=== PATIENT | male | born 1935 | race Caucasian/White ===

== ENCOUNTER → 2016-11-17 | Outpatient (CLI) | payer OTHER, MEDICARE | LOC: FIMAGING 07:08 | PROVIDERS: ATTEND Internal Medicine Cardiovascular Disease | DX: I71.4 Abdominal aortic aneurysm, without rupture (principal); I10 Essential (primary) hypertension; Z72.0 Tobacco use ==

== ENCOUNTER → 2017-05-31 | Outpatient (CLI) | payer OTHER, MEDICARE | LOC: FIMAGING 12:40 | PROVIDERS: ATTEND Internal Medicine | DX: D47.2 Monoclonal gammopathy (principal); S22.050A Wedge compression fracture of T5-T6 vertebra, initial encounter for closed fracture ==

== ENCOUNTER → 2017-06-29 | Outpatient (CLI) | payer OTHER, MEDICARE | LOC: BMCIMAGING 08:33 | PROVIDERS: ATTEND Internal Medicine Cardiovascular Disease | DX: I70.0 Atherosclerosis of aorta (principal) ==

== ENCOUNTER 2017-07-21 07:29 | Emergency (ER) | payer OTHER, MEDICARE ==
[2017-07-21] MEDS ORDERED: OXYMETAZOLINE 30 ML NASAL SPRAY ONE (07:46)
[2017-07-21] MEDS ORDERED: OXYMETAZOLINE 30 ML NASAL SPRAY EACHNARE ONE (07:51)
[2017-07-21] MEDS ORDERED: COCAINE HCL 4% 4 ML BTL TP ONE ×2 (07:55→07:57)
[2017-07-21] MEDS ORDERED: SILVER NITRATE APPLICATOR 1 APPL TP ONE ×2 (07:56→07:57)
--- NOTE | 2017-07-21 07:56 | EDPHY ---
H & P Stated Complaint: nose bleed since 2am. On blood thinners Time Seen by Provider: 07/21/17 07:49 HPI/ROS: CHIEF COMPLAINT: Epistaxis HISTORY OF PRESENT ILLNESS: The patient is an 81-year-old man on Pradaxa for history of AFib and cardiac stents who comes to the emergency department complaining of epistaxis from his right nares that began while he was asleep last night. He did not try any interventions at home. He does not feel lightheaded or dizzy. No trauma. No fever. No recent infection. No vomiting. REVIEW OF SYSTEMS: Constitutional: denies: chills, fever, recent illness, recent injury EENTM: See HPI Respiratory: denies: cough, shortness of breath Cardiac: denies: chest pain, irregular heart rate, lightheadedness, palpitations Gastrointestinal/Abdominal: denies: abdominal pain, diarrhea, nausea, vomiting, blood streaked stools Genitourinary: denies: dysuria, frequency, hematuria, pain Musculoskeletal: denies: joint pain, muscle pain Skin: denies: lesions, rash, jaundice, bruising Neurological: denies: headache, numbness, paresthesia, tingling, dizziness, weakness Hematologic/Lymphatic: denies: blood clots, easy bleeding, easy bruising Immunologic/allergic: denies: HIV/AIDS, transplant EXAM: GENERAL: Well-appearing, well-nourished and in no acute distress. HEAD: Atraumatic, normocephalic. EYES: Pupils equal round and reactive to light, extraocular movements intact, sclera anicteric, conjunctiva are normal. ENT: Anterior epistaxis right nares, TMs normal, oropharynx clear without exudates. Moist mucous membranes. NECK: Normal range of motion, supple without lymphadenopathy or JVD. LUNGS: Breath sounds clear to auscultation bilaterally and equal. No wheezes rales or rhonchi. HEART: Regular rate and rhythm without murmurs, rubs or gallops. ABDOMEN: Soft, nontender, normoactive bowel sounds. No guarding, no rebound. No masses appreciated. BACK: No CVA tenderness, no spinal tenderness, step-offs or deformities EXTREMITIES: Normal range of motion, no pitting or edema. No clubbing or cyanosis. NEUROLOGICAL: Cranial nerves II through XII grossly intact. Normal speech, normal gait. 5/5 strength, normal movement in all extremities, normal sensation PSYCH: Normal mood, normal affect. SKIN: Warm, dry, normal turgor, no visible rashes or lesions. Source: Patient Exam Limitations: No limitations - Personal History Current Tetanus Diphtheria and Acellular Pertussis (TDAP): Yes Tetanus Vaccine Date: 2002 - Medical/Surgical History Hx Asthma: No Hx Chronic Respiratory Disease: No Hx Diabetes: No Hx Cardiac Disease: Yes Hx Renal Disease: No Hx Cirrhosis: No Hx Alcoholism: No Hx HIV/AIDS: No Hx Splenectomy or Spleen Trauma: No Other PMH: AFib, Stents x 5. - Social History Smoking Status: Heavy smoker Alcohol Use: Sober Drug Use: None Constitutional: Initial Vital Signs Heart Rate 91 07/21/17 07:30 Respiratory Rate 18 07/21/17 07:30 Blood Pressure 114/92 H 07/21/17 07:30 O2 Sat (%) 95 07/21/17 07:30 O2 Delivery Mode Room Air Allergies/Adverse Reactions: clopidogrel bisulfate [From Plavix] Allergy (Severe, Verified 07/21/17 12:56) MUSCLE WEAKNESS atorvastatin [Atorvastatin] Allergy (Verified 07/21/17 12:56) MUSCLE PAIN Home Medications: Medication Instructions Recorded Aspirin [Aspirin 325 mg] 325 mg PO DAILY 08/10/11 Metoprolol Tartrate [Lopressor] 100 mg PO BID 08/10/11 Rosuvastatin Calcium [Crestor] 5 mg PO DAILY 08/10/11 Finasteride 07/21/17 Losartan/Hctz 50/12.5 07/21/17 Pradaxa 150 MG (*) 07/21/17 Tamsulosin HCl 07/21/17 Medical Decision Making Procedures: The patient's nose was instilled with Afrin both sides and nasal clamp placed. It was then cleared with blowing and a cotton ball soaked in cocaine placed in the right anterior nares. Bleeding controlled. ED Course/Re-evaluation: 9:15 a.m. the patient is feeling much better. The bleeding has stopped with a cotton ball packing. Will leave this in place for 24 hr. He is ambulating without difficulty. He is eager to leave. We discussed return precautions. Differential Diagnosis: Partial list of the Differential diagnosis considered include but were not limited to; anterior nose bleed, steroid nosebleed, infection, trauma and although unlikely based on the history and physical exam, I also considered hemorrhage. I discussed these differential diagnoses and the plan with the patient as well as the usual and expected course. The patient understands that the diagnosis is provisional and that in medicine we are not always correct and that further workup is often warranted. Usual and customary warnings were given. All of the patient's questions were answered. The patient was instructed to return to the emergency department should the symptoms at all worsen or return, otherwise to followup with the physician as we discussed. - Data Points Medications Given: Discontinued Medications Cocaine HCl (Cocaine Hcl) 1 per TP EDNOW ONE Stop: 07/21/17 07:58 Last Admin: 07/21/17 07:58 Dose: 4 ml Oxymetazoline HCl (Afrin Nasal [place]) 2 sprays EACHNARE EDNOW ONE Stop: 07/21/17 07:52 Last Admin: 07/21/17 07:58 Dose: 2 spray Silver Nitrate/Potassium Nitrate (Silver Nitrate Applicator) 1 each TP EDNOW ONE Stop: 07/21/17 07:58 Last Admin: 07/21/17 07:59 Dose: 1 each Departure - Departure Disposition: Home, Routine, Self-Care Clinical Impression: Anterior epistaxis Condition: Fair Instructions: Nosebleed (ED) Referrals: Vinny Barajas MD [Primary Care Provider] - As per Instructions
[2017-07-21 09:20] VITALS: BP 110/49; PULSE 68; RESP 16; O2SAT 99
== END 2017-07-21 09:20 | disposition home or self-care (01) ==
DX: R04.0 Epistaxis (principal); F17.200 Nicotine dependence, unspecified, uncomplicated; Z79.82 Long term (current) use of aspirin; Z95.5 Presence of coronary angioplasty implant and graft

== ENCOUNTER 2017-07-21 12:53 | Emergency (ER) | payer OTHER, MEDICARE ==
[2017-07-21 12:59] VITALS: RESP 18; O2SAT 99
[2017-07-21] MEDS ORDERED: COCAINE HCL 4% 4 ML BTL TP ONE (13:16)
[2017-07-21] MEDS ORDERED: SILVER NITRATE APPLICATOR 1 APPL TP ONE (13:16)
[2017-07-21] MEDS ORDERED: OXYMETAZOLINE 30 ML NASAL SPRAY ONE (13:17)
--- NOTE | 2017-07-21 13:19 | EDPHY ---
H & P Stated Complaint: Here this morning w/nosebleed;returns because it still hasn't stopped Time Seen by Provider: 07/21/17 13:13 HPI/ROS: CHIEF COMPLAINT: Epistaxis HISTORY OF PRESENT ILLNESS: Patient is an 81-year-old man with history of AFib on Pradaxa who I saw her earlier this morning with epistaxis. His bleeding stopped with Afrin and a cotton ball soaked in cocaine. He states that it is starting to ooze again around the cotton ball. He does not think that any is running down his throat. He has not had a fever. He has not felt lightheaded or dizzy. REVIEW OF SYSTEMS: Constitutional: denies: chills, fever, recent illness, recent injury EENTM: See HPI Respiratory: denies: cough, shortness of breath Cardiac: denies: chest pain, irregular heart rate, lightheadedness, palpitations Gastrointestinal/Abdominal: denies: abdominal pain, diarrhea, nausea, vomiting, blood streaked stools Genitourinary: denies: dysuria, frequency, hematuria, pain Musculoskeletal: denies: joint pain, muscle pain Skin: denies: lesions, rash, jaundice, bruising Neurological: denies: headache, numbness, paresthesia, tingling, dizziness, weakness Hematologic/Lymphatic: denies: blood clots, easy bleeding, easy bruising Immunologic/allergic: denies: HIV/AIDS, transplant EXAM: GENERAL: Well-appearing, well-nourished and in no acute distress. HEAD: Atraumatic, normocephalic. EYES: Pupils equal round and reactive to light, extraocular movements intact, sclera anicteric, conjunctiva are normal. ENT: Right nares with clot behind cotton ball. It easily removed. Anterior bruising. NECK: Normal range of motion, supple without lymphadenopathy or JVD. LUNGS: Breath sounds clear to auscultation bilaterally and equal. No wheezes rales or rhonchi. HEART: Regular rate and rhythm without murmurs, rubs or gallops. ABDOMEN: Soft, nontender, normoactive bowel sounds. No guarding, no rebound. No masses appreciated. BACK: No CVA tenderness, no spinal tenderness, step-offs or deformities EXTREMITIES: Normal range of motion, no pitting or edema. No clubbing or cyanosis. NEUROLOGICAL: Cranial nerves II through XII grossly intact. Normal speech, normal gait. 5/5 strength, normal movement in all extremities, normal sensation PSYCH: Normal mood, normal affect. SKIN: Warm, dry, normal turgor, no visible rashes or lesions. Source: Patient Exam Limitations: No limitations - Personal History Current Tetanus Diphtheria and Acellular Pertussis (TDAP): Yes Tetanus Vaccine Date: 2002 - Medical/Surgical History Hx Asthma: No Hx Chronic Respiratory Disease: No Hx Diabetes: No Hx Cardiac Disease: Yes Hx Renal Disease: No Hx Cirrhosis: No Hx Alcoholism: No Hx HIV/AIDS: No Hx Splenectomy or Spleen Trauma: No Other PMH: AFib, Stents x 5. - Family History Significant Family History: No pertinent family hx - Social History Smoking Status: Current every day smoker Alcohol Use: Sober Drug Use: None Constitutional: Initial Vital Signs Heart Rate 66 07/21/17 12:57 Respiratory Rate 18 07/21/17 12:57 Blood Pressure 137/68 H 07/21/17 12:57 O2 Sat (%) 99 07/21/17 12:57 O2 Delivery Mode Room Air Allergies/Adverse Reactions: clopidogrel bisulfate [From Plavix] Allergy (Severe, Verified 07/21/17 12:56) MUSCLE WEAKNESS atorvastatin [Atorvastatin] Allergy (Verified 07/21/17 12:56) MUSCLE PAIN Home Medications: Medication Instructions Recorded Aspirin [Aspirin 325 mg] 325 mg PO DAILY 08/10/11 Metoprolol Tartrate [Lopressor] 100 mg PO BID 08/10/11 Rosuvastatin Calcium [Crestor] 5 mg PO DAILY 08/10/11 Finasteride 07/21/17 Losartan/Hctz 50/12.5 07/21/17 Pradaxa 150 MG (*) 07/21/17 Tamsulosin HCl 07/21/17 Medical Decision Making Procedures: The patient was again instilled with Afrin bilateral clamp placed for 20 min. The bleeding practically stopped. Cocaine was then given for anesthesia and a rhino rocket placed. The patient tolerated this well. The bleeding is completely controlled. ED Course/Re-evaluation: Patient tolerated the procedure well. I did recommend he leave in place for 48 hr and started antibiotics. He is extremely hesitant to start antibiotics. We agreed to leave the packing in place only for 24 hr and at that duration he will not need to start antibiotics. He will take it out himself we discussed steps to take if starts bleeding including using Afrin and a clamp again and returning to the ER. Differential Diagnosis: Partial list of the Differential diagnosis considered include but were not limited to; medication reaction, trauma, infection, anterior epistaxis, posterior epistaxis and although unlikely based on the history and physical exam , I also considered hemoptysis, hemorrhage. I discussed these differential diagnoses and the plan with the patient as well as the usual and expected course. The patient understands that the diagnosis is provisional and that in medicine we are not always correct and that further workup is often warranted. Usual and customary warnings were given. All of the patient's questions were answered. The patient was instructed to return to the emergency department should the symptoms at all worsen or return, otherwise to followup with the physician as we discussed. Departure - Departure Disposition: Home, Routine, Self-Care Clinical Impression: Anterior epistaxis Condition: Fair Instructions: Nosebleed (ED) Referrals: Vinny Barajas MD [Primary Care Provider] - As per Instructions
[2017-07-21 14:25] VITALS: BP 141/64; PULSE 67; TEMP 97.3
== END 2017-07-21 14:33 | disposition home or self-care (01) ==
PROC: 2Y41X5Z Packing of Nasal Region using Packing Material (ICD-10-PCS; principal; 2017-07-21)
DX: R04.0 Epistaxis (principal); F17.200 Nicotine dependence, unspecified, uncomplicated; Z79.82 Long term (current) use of aspirin

== ENCOUNTER 2018-01-03 01:46 | Observation (INO) | payer OTHER, MEDICARE ==
[2018-01-03] MEDS ORDERED: IPRATROPIUM/ALBUTEROL 3 ML DEYVIAL IH ONE (02:25)
[2018-01-03] MEDS ORDERED: FUROSEMIDE 40 MG/4 ML VIAL IVP ONE (03:35)
[2018-01-03] MEDS ORDERED: TAMSULOSIN HCL 0.4 MG CAP PO SCH (06:58)
[2018-01-03] MEDS ORDERED: ACETAMINOPHEN 325 MG TAB PO PRN (09:00)
[2018-01-03] MEDS ORDERED: ONDANSETRON 4 MG/2 ML VIAL IVP PRN (09:00)
[2018-01-03] MEDS ORDERED: FUROSEMIDE 20 MG TAB ONE ×2 (12:42→15:41)
[2018-01-03] MEDS ORDERED: ROSUVASTATIN CALCIUM 20 MG TAB PO SCH (21:00)
[2018-01-03] MEDS ORDERED: LOSARTAN POTASSIUM 25 MG TAB PO SCH (21:00)
[2018-01-03] MEDS ORDERED: METOPROLOL SUCCINATE XR 100 MG TAB PO SCH (21:00)
[2018-01-03] MEDS ORDERED: ROSUVASTATIN CALCIUM 20 MG TAB ONE (21:51)
[2018-01-03] MEDS ORDERED: METOPROLOL SUCCINATE XR 100 MG TAB PO ONE (21:52)
[2018-01-03] MEDS ORDERED: LOSARTAN POTASSIUM 25 MG TAB ONE (21:52)
--- NOTE | 2018-01-03 22:30 | ASMTCMCOM ---
CM Note CM Note Notes: 01/03/2018 Case Management Note Discussed pt during rounds this morning. Pt admitted for SOB with CHF exacerbation. Pt recently completed a lengthy road trip to [place] with his Sujey [phone]. Pt lives independently with his in his own home. He has 6 sons and 2 daughters in the [facility] area. His primary MD is Dr. Barajas. Case Management d/c poc: anticipating independent with follow up as directed. Case Management available if needs change. Date Signed: 01/03/2018 03:12 PM Electronically Signed By:Ester Teresa RN
--- NOTE | 2018-01-03 22:31 | GPROG ---
[f rep st] PROGRESS NOTE DATE OF SERVICE: 01/03/2018 SUBJECTIVE: The patient feels better today. He states he diuresed effectively overnight after recei ving IV Lasix. He denies orthopnea. He is still slightly short of breath, but this is improved. He has no chest pain. He is afebrile. He is eating well. OBJECTIVE: VITAL SIGNS: Stable. GENERAL: Patient is awake, alert, oriented in no acute distress. HEENT: Head is atraumatic, normocephalic. Pupils equal, round, and reactive to light. Extraocular motions intact. Oropharynx is clear. Mucous membranes are moist. NECK: Supple. He has 10-12 cm JVD. HEART: Regular rate and rhythm with 2/6 systolic ejection murmur. LUNGS: Reveal bibasilar cr ackles with fairly good air exchange. ABDOMEN: Soft, nondistended, nontender. Normoactive bowel so unds. EXTREMITIES: He has trace to 1+ bilateral lower extremity edema. Extremities, otherwise warm , well perfused. NEUROLOGIC: Grossly nonfocal. LABORATORY DATA: INR is 1.57. BNP 2200. ASSESSMENT/PLAN: The patient is an 82-year-old male patient who presented to the hospital with dyspn ea, admitted for acute heart failure management. 1. Acute heart failure. His symptoms are improved after intravenous Lasix. We will continue Lasix today orally and check an echocardiogram to evaluate his left ventricular function. 2. Coronary artery disease, status post stent x15. His EKG is nonischemic. There is no evidence of acute coronary syndrome. As above, an echo is pending. 3. Atrial fibrillation. The patient is rate controlled. We will continue anticoagulation with Prad axa. 4. Benign prostatic hypertrophy. Continue finasteride and Flomax. 5. Valvular heart disease. 6. Hypothyroidism. 7. Tobacco abuse. 8. Alcohol dependence. He drinks up to 5 vodkas a day. I offered to order him vodka while in the h ospital, though he declines. Will need to watch closely for signs of withdrawal, and prior to onset of withdrawal, initiate alcohol or CIWA protocol. DISPOSITION: Patient will require greater than 48 hours hospitalization for ongoing management of hi s acute heart failure. /[id number]/MODL
[2018-01-03 23:56] LABS: INR 1.57 (0.83-1.16); PROTIME(PATIENT) 18.9 SEC (12.0-15.0)
--- NOTE | 2018-01-04 05:17 | EDPHY ---
H & P Stated Complaint: recent air travel, today having cp/sob/intermittent dizziness Time Seen by Provider: 01/03/18 03:00 HPI/ROS: HPI CHIEF COMPLAINT: Chest pain, shortness of breath HISTORY OF PRESENT ILLNESS: Patient is a very pleasant 82-year-old male, presents emergency room with chest discomfort and shortness of breath. He does report to me that he has coronary artery disease with 5 stents. Additionally he takes Pradaxa as he history of AFib. He does have a long history of smoking tobacco and smokes half a pack per day. He recently went on a trip to [place] drove there and back. For the past 2 days he has gotten progressively worsening shortness of breath. Also some chest pressure. Decided come the emergency room as he was unable to sleep. He states he can't take a deep breath in. Past Medical History: Coronary artery disease with multiple stents, AFib, hypertension, hyperlipidemia Past Surgical History cardiac stents Social History: Denies drugs alcohol tobacco. Family History: Noncontributory ROS REVIEW OF SYSTEMS: A comprehensive 10 point review of systems is otherwise negative aside from elements mentioned in the history of present illness. Exam Constitutional triage nursing summary reviewed, vital signs reviewed, awake/ alert. Eyes normal conjunctivae and sclera, EOMI, PERRLA. HENT normal inspection, atraumatic, moist mucus membranes, no epistaxis, neck supple/ no meningismus, no raccoon eyes. Respiratory decreased breath sounds bilaterally, no respiratory distress, no wheezing. Cardiovascular rate normal, regular rhythm, no murmur, no edema, distal pulses normal. Gastrointestinal soft, non-tender, no rebound, no guarding, normal bowel sounds, no distension, no pulsatile mass. Genitourinary no CVA tenderness. Musculoskeletal no midline vertebral tenderness, full range of motion, no calf swelling, no tenderness of extremities, no meningismus, good pulses, neurovascularly intact. Skin pink, warm, & dry, no rash, skin atraumatic. Neurologic awake, alert and oriented x 3, AAOx3, moves all 4 extremities equally, motor intact, sensory intact, CN II-XII intact, normal cerebellar, normal vision, normal speech. Psychiatric normal mood/affect. Heme/Lymph/Immune no lymphadenopathy. Differential diagnosis includes but is not limited to: ACS, atypical chest pain , pneumothorax, pneumonia, pulmonary embolism, aortic dissection, congestive heart failure, tumor, musculoskeletal pain, esophageal pain, GERD, peptic ulcer disease, pancreatitis Medical Decision Making: Plan for this patient IV establishment full personnel monitor obtain EKG to rule out acute coronary syndrome, chest x-ray, check D- dimer, check a BNP, and re-evaluate. Re-evaluation: EKG interpretation by me on record in [employer] system. Impression time of EKG 2:03 a.m., this is AFib rate of 77 PVC present. No acute ischemic change. Chest x-ray reviewed by myself. Two view. Cardiomegaly with pulmonary edema. 0330: I have ordered this patient 40 mg IV Lasix. Is also noted his BNP is elevated at 2290 Patient's troponin noted to be negative. 0.02. Additionally patient's D-dimer- 0.27. Patient has elevated BNP, shortness of breath, decreased breath sounds bilaterally, cardiomegaly on the chest x-ray with some pulmonary edema I have ordered this patient IV Lasix 40 mg. EKG shows AFib with no acute ischemia. Given this patient's cardiac risk factors including obesity, hyperlipidemia, hypertension, coronary disease with stents patient need to be admitted the hospital. Final diagnosis shortness of breath, congestive heart failure. Spoke with the hospitalist service 400AM; Dr. Guevara agrees to admit. Source: Patient - Personal History Tetanus Vaccine Date: 2002 - Medical/Surgical History Hx Asthma: No Hx Chronic Respiratory Disease: No Hx Diabetes: No Hx Cardiac Disease: Yes Hx Renal Disease: No Hx Cirrhosis: No Hx Alcoholism: No Hx HIV/AIDS: No Hx Splenectomy or Spleen Trauma: No Other PMH: AFib, Stents x 5, pericarditis, mi, bph, hyperlipidemia, hypertension , hypothyroid - Social History Smoking Status: Current every day smoker Constitutional: Initial Vital Signs Temperature (C) 36.8 C 01/03/18 01:52 Heart Rate 77 01/03/18 01:52 Respiratory Rate 18 01/03/18 01:52 Blood Pressure 114/64 01/03/18 01:52 O2 Sat (%) 93 01/03/18 01:52 O2 Delivery Mode Room Air Allergies/Adverse Reactions: clopidogrel bisulfate [From Plavix] Allergy (Severe, Verified 07/21/17 12:56) MUSCLE WEAKNESS atorvastatin [Atorvastatin] Allergy (Verified 07/21/17 12:56) MUSCLE PAIN Home Medications: Medication Instructions Recorded Aspirin [Aspirin 325 mg] 325 mg PO DAILY 08/10/11 Metoprolol Tartrate [Lopressor] 100 mg PO BID 08/10/11 Rosuvastatin Calcium [Crestor] 5 mg PO DAILY 08/10/11 Finasteride 07/21/17 Losartan/Hctz 50/12.5 07/21/17 Pradaxa 150 MG (*) 07/21/17 Tamsulosin HCl 07/21/17 Medical Decision Making - Data Points Laboratory Results: Laboratory Results 01/03/18 02:08 01/03/18 01/03/18 02:11 02:08 PT 18.9 SEC H SEC (12.0-15.0) INR 1.57 H (0.83-1.16) APTT 47.6 SEC H SEC (23.0-38.0) D-Dimer < 0.27 ug/mLFEU ug/mLFEU (0.00-0.50) Sodium 134 mEq/L L mEq/L (135-145) Potassium 4.4 mEq/L mEq/L (3.3-5.0) Chloride 101 mEq/L mEq/L (97-110) Carbon Dioxide 22 mEq/l mEq/l (22-31) Anion Gap 11 mEq/L mEq/L (8-16) BUN 12 mg/dL mg/dL (7-23) Creatinine 0.9 mg/dL mg/dL (0.7-1.3) Estimated GFR > 60 Glucose 110 mg/dL H mg/dL (70-100) Calcium 8.7 mg/dL mg/dL (8.5-10.4) NT-Pro-B Natriuret Pep 2290 pg/mL H pg/mL (0-450) Departure - Departure Disposition: [facility] Inpatient Acute Clinical Impression: Chest pain Qualifiers: Chest pain type: unspecified Qualified Code(s): R07.9 - Chest pain, unspecified Condition: Fair
[2018-01-04] MEDS: LEVOTHYROXINE 50 MCG TAB PO SCH ×2 (06:49→08:25)
[2018-01-04] MEDS: ASPIRIN EC 81 MG TAB PO SCH ×2 (08:25→09:37)
[2018-01-04] MEDS: METOPROLOL SUCCINATE XR 50 MG TAB PO SCH ×2 (08:26→09:38)
[2018-01-04] MEDS: NICOTINE 14 MG/24 HR PATCH TD SCH ×2 (08:26→09:37)
[2018-01-04] MEDS: FUROSEMIDE 20 MG TAB PO SCH ×2 (08:26→09:38)
[2018-01-04] MEDS: DABIGATRAN ETEXILATE MESYL 150 MG CAP PO SCH ×2 (08:26→08:39)
[2018-01-04] MEDS: FINASTERIDE 5 MG TAB PO SCH ×2 (08:26→09:37)
[2018-01-04] MEDS: TAMSULOSIN HCL 0.4 MG CAP PO SCH ×2 (08:26→09:38)
--- NOTE | 2018-01-04 09:33 | CPEKG ---
Heart Rate: 77 RR Interval: 779 QRSD Interval: 82 QT Interval: 400 QTC Interval: 453 QRS [place]: -24 T Wave [place]: 29 EKG Severity - ABNORMAL ECG - EKG Impression: ATRIAL FIBRILLATION EKG Impression: VENTRICULAR PREMATURE COMPLEX EKG Impression: PROBABLE INFERIOR INFARCT, AGE INDETERMINATE EKG Impression: CONSIDER ANTEROSEPTAL INFARCT EKG Impression: ATRIAL FIBRILLATION HAS REPLACED NORMAL SINUS RHYTHM NOTED ON PRIOR ECG (FROM EKG Impression: 15-FEB-2011) Electronically Signed By: Rapheal Mondragon 04-Jan-2018 11:30:00
[2018-01-04 11:16] VITALS: BP 94/48
--- NOTE | 2018-01-04 14:57 | EDPHY ---
[facility] Patient Name: KI ESPAÑA Rpt#: [id number] Unit Number: [id number] ER Physician: Rober Aragon MD Patient Type: ADM Lisbeth Adm Date/Source: 01/03/18 EMR Discharge Date: Primary Carrier: MEDICARE OUTPATIENT EMERGENCY DEPARTMENT PROVIDER REPORT H P Stated Complaint: chest pain Time Seen by Provider: 01/03/18 01:50 HPI/ROS: HPI CHIEF COMPLAINT: Chest pain, shortness of breath HISTORY OF PRESENT ILLNESS: Patient is a very pleasant 82-year-old male, presents emergency room with chest discomfort and shortness of breath. He does report to me that he has coronary artery disease with 5 stents. Additionally he takes Pradaxa as he history of AFib. He does have a long history of smoking tobacco and smokes half a pack per day. He recently went on a trip to [place] drove there and back. For the past 2 days he has gotten progressively worsening shortness of breath. Also some chest pressure. Decided come the emergency room as he was unable to sleep. He states he can't take a deep breath in. Past Medical History: Coronary artery disease with multiple stents, AFib, hypertension, hyperlipidemia Past Surgical History cardiac stents Social History: Denies drugs alcohol tobacco. Family History: Noncontributory ROS REVIEW OF SYSTEMS: A comprehensive 10 point review of systems is otherwise negative aside from elements mentioned in the history of present illness. Exam Constitutional triage nursing summary reviewed, vital signs reviewed, awake/alert. Eyes normal conjunctivae and sclera, EOMI, PERRLA. HENT normal inspection, atraumatic, moist mucus membranes, no epistaxis, neck supple/ no meningismus, no raccoon eyes. Respiratory decreased breath sounds bilaterally, no respiratory distress, no wheezing. Cardiovascular rate normal, regular rhythm, no murmur, no edema, distal pulses normal. Gastrointestinal soft, non-tender, no rebound, no guarding, normal bowel sounds, no distension, no pulsatile mass. Genitourinary no CVA tenderness. Musculoskeletal no midline vertebral tenderness, full range of motion, no calf swelling, no tenderness of extremities, no meningismus, good pulses, neurovascularly intact. Skin pink, warm, dry, no rash, skin atraumatic. Neurologic awake, alert and oriented x 3, AAOx3, moves all 4 extremities equally, motor intact, sensory intact, CN II-XII intact, normal cerebellar, normal vision, normal speech. Psychiatric normal mood/affect. Heme/Lymph/Immune no lymphadenopathy. Differential diagnosis includes but is not limited to: ACS, atypical chest pain, pneumothorax, pneumonia, pulmonary embolism, aortic dissection, congestive heart failure, tumor, musculoskeletal pain, esophageal pain, GERD, peptic ulcer disease, pancreatitis Medical Decision Making: Plan for this patient IV establishment full director of cardiac cath lab obtain EKG to rule out acute coronary syndrome, chest x-ray, check D-dimer, check a BNP, and re-evaluate. Re-evaluation: EKG interpretation by me on record in [employer] system. Impression time of EKG 2:03 a.m., this is AFib rate of 77 PVC present. No acute ischemic change. Chest x-ray reviewed by myself. Two view. Cardiomegaly with pulmonary edema. 0330: I have ordered this patient 40 mg IV Lasix. Is also noted his BNP is elevated at 2290 Patient's troponin noted to be negative. 0.02. Additionally patient's D-dimer-0.27. Patient has elevated BNP, shortness of breath, decreased breath sounds bilaterally, cardiomegaly on the chest x-ray with some pulmonary edema I have ordered this patient IV Lasix 40 mg. EKG shows AFib with no acute ischemia. Given this patient's cardiac risk factors including obesity, hyperlipidemia, hypertension, coronary disease with stents patient need to be admitted the hospital. Final diagnosis shortness of breath, congestive heart failure. Spoke with the hospitalist service 400AM; Dr. Guevara agrees to admit. Source: Patient - Personal History Current Tetanus/Diphtheria Vaccine: Yes Current Tetanus Diphtheria and Acellular Pertussis (TDAP): Yes Tetanus Vaccine Date: 2002 - Medical/Surgical History Hx Asthma: No Hx Chronic Respiratory Disease: No Hx Diabetes: No Hx Cardiac Disease: Yes Hx Renal Disease: No Hx Cirrhosis: No Hx Alcoholism: No Hx HIV/AIDS: No Hx Splenectomy or Spleen Trauma: No Other PMH: AFib, Stents x 5. - Social History Smoking Status: Current every day smoker Constitutional: Initial Vital Signs Temperature (C) 36.8 C 01/03/18 01:50 Heart Rate 77 01/03/18 01:50 Respiratory Rate 18 01/03/18 01:50 Blood Pressure 114/64 01/03/18 01:50 O2 Sat (%) 93 01/03/18 01:50 O2 Delivery Mode Room Air Allergies/Adverse Reactions: clopidogrel bisulfate [From Plavix] Allergy (Severe, Verified 07/21/17 12:56) MUSCLE WEAKNESS atorvastatin [Atorvastatin] Allergy (Verified 07/21/17 12:56) MUSCLE PAIN Home Medications: Medication Instructions Recorded Aspirin [Aspirin 325 mg] 325 mg PO DAILY 08/10/11 Metoprolol Tartrate [Lopressor] 100 mg PO BID 08/10/11 Rosuvastatin Calcium [Crestor] 5 mg PO DAILY 08/10/11 Finasteride 07/21/17 Losartan/Hctz 50/12.5 07/21/17 Pradaxa 150 MG (*) 07/21/17 Tamsulosin HCl 07/21/17 Medical Decision Making - Data Points Laboratory Results: Laboratory Results 01/03/18 02:11 01/03/18 02:11 01/03/18 01/03/18 01/03/18 02:11 02:11 02:11 WBC 5.20 10 3/uL 10 3/uL (3.80-9.50) RBC 3.20 10 6/uL L 10 6/uL (4.40-6.38) Hgb 10.9 g/dL L g/dL (13.7-17.5) Hct 31.6 % L % (40.0-51.0) MCV 98.8 fL fL (81.5-99.8) MCH 34.1 pg pg (27.9-34.1) MCHC 34.5 g/dL g/dL (32.4-36.7) RDW 15.0 % % (11.5-15.2) Plt Count 127 10 3/uL L 10 3/uL (150-400) MPV 11.2 fL fL (8.7-11.7) Neut % (Auto) 53.8 % % (39.3-74.2) Lymph % (Auto) 29.0 % % (15.0-45.0) [place] % (Auto) 12.5 % % (4.5-13.0) Eos % (Auto) 3.5 % % (0.6-7.6) Baso % (Auto) 0.4 % % (0.3-1.7) Nucleat RBC Rel Count 0.0 % % (0.0-0.2) Absolute Neuts (auto) 2.80 10 3/uL 10 3/uL (1.70-6.50) Absolute Lymphs (auto) 1.51 10 3/uL 10 3/uL (1.00-3.00) Absolute Monos (auto) 0.65 10 3/uL 10 3/uL (0.30-0.80) Absolute Eos (auto) 0.18 10 3/uL 10 3/uL (0.03-0.40) Absolute Basos (auto) 0.02 10 3/uL 10 3/uL (0.02-0.10) Absolute Nucleated RBC 0.00 10 3/uL 10 3/uL (0-0.01) Immature Gran % 0.8 % % (0.0-1.1) Immature Gran # 0.04 10 3/uL 10 3/uL (0.00-0.10) PT 18.9 SEC H SEC (12.0-15.0) INR 1.57 H (0.83-1.16) APTT 47.6 SEC H SEC (23.0-38.0) D-Dimer < 0.27 ug/mLFEU ug/mLFEU (0.00-0.50) Sodium 134 mEq/L L mEq/L (135-145) Potassium 4.4 mEq/L mEq/L (3.3-5.0) Chloride 101 mEq/L mEq/L (97-110) Carbon Dioxide 22 mEq/l mEq/l (22-31) Anion Gap 11 mEq/L mEq/L (8-16) BUN 12 mg/dL mg/dL (7-23) Creatinine 0.9 mg/dL mg/dL (0.7-1.3) Estimated GFR > 60 Glucose 110 mg/dL H mg/dL (70-100) Calcium 8.7 mg/dL mg/dL (8.5-10.4) NT-Pro-B Natriuret Pep 2290 pg/mL H pg/mL (0-450) Departure - Departure Disposition: [facility] Inpatient Acute Clinical Impression: Acute dyspnea Chest pain Qualifiers: Chest pain type: unspecified Qualified Code(s): R07.9 - Chest pain, unspecified Condition: Fair *This report may have been compiled using a voice recognition system, and might contain typographical errors and blanks.* Rober Aragon MD 01/03/18 0753 <Electronically signed by Rober Aragon MD> 1 T: LEE ANN 01/03/18751 CC: Vinny Barajas MD
--- NOTE | 2018-01-04 21:14 | GHP ---
[f rep st] HISTORY AND PHYSICAL DATE OF ADMISSION: 01/03/2018 SOURCE: Patient able to provide some of the history. He and his are fair historians. Specific details regarding patient's cardiac history are a little limited. Currently, [employer] is down and I am unable to verify patient's past cardiac history. Case was discussed with ED provider. CHIEF COMPLAINT: Shortness of breath and chest pressure. HISTORY OF PRESENT ILLNESS: This is a very pleasant 82-year-old gentleman with a past medical histor y significant for coronary artery disease with history of stents, AFib, hypothyroidism, BPH, and valv ular heart disease who presents to the emergency department early this morning with complaints of alina rtness of breath and chest pressure. The patient does not wear home oxygen. He reports that he has had an intermittent nonproductive cough. No fevers, chills. He has chronic lower extremity edema wh ich appears to be close to chronic close to baseline, which is minimal currently. The patient also r eports slight orthopnea but no PND. He has had recent extended travel while driving to [employer] and [employer]. He denies any calf pain or swelling. No recent sick contacts. REVIEW OF SYSTEMS: GENERAL: Patient reports that he always feels cold but has not had any fevers or chills otherwise. SKIN: No rashes or sores. ENT: Patient with chronic nasal congestion but no sor e throat. EYES: No acute changes in vision or ocular pain. CV: Patient reports a central chest pre ssure associated with his shortness of breath. He also reports history of atrial fibrillation with i ntermittent palpitations, but nothing currently. RESPIRATORY: See HPI. GI: No nausea, vomiting, a bdominal pain or diarrhea. : No dysuria or hematuria. Patient does have a history of nocturia an d BPH. MUSCULOSKELETAL: Patient reports progressive upper extremity weakness that has been ongoing for the last 5 to 10 years. He has no focal weakness complaint. No joint pains from baseline. NEUR O: Patient denies headache recently. He has chronic neuropathy in both feet. PSYCH: Negative for anxiety, depression. Remainder of review of systems negative except as noted above. ALLERGIES: No known drug allergies. HOME MEDICATIONS: List reviewed with the patient's . Metoprolol succinate 100 mg half tab in th e evening; rosuvastatin 20 mg half tab in the evening; levothyroxine 50 mcg daily; finasteride 5 mg, patient now taking a half tab at night; aspirin 81 mg in the morning; losartan 12.5 mg daily in the e vening; Pradaxa 300 mg p.o. daily; tamsulosin 0.4 mg 2 tabs daily. PAST MEDICAL HISTORY: Significant for CAD with history of stenting. The patient reports he has had a total of 5 stents placed very the course of 2 caths. A history of atrial fibrillation on chronic a nticoagulation with Pradaxa, hypothyroidism, BPH, valvular heart disease. The patient is unsure if h gustavo has any underlying CHF, but he does report approximately 20 to 30 years ago patient had a pericardi al effusions. PAST SURGICAL HISTORY: Significant for cardiac cath x2 with 5 stents total, tonsillectomy, adenoidec rudy and left cataract extraction with lens placement. FAMILY HISTORY: Father , age 42, from [place]. CAD runs in the family. Both his brothers had by pass at younger age and a sister with history of diabetes type 2. SOCIAL HISTORY: Patient is , lives with his . Son is in town and supportive. He does co ntinue to smoke approximately quarter pack to half pack per day. Denies any illicit drug use or sapphire toby use. The patient does drink greater than 4 to 5 ounces, but he cannot exactly quantify his tot al alcohol intake as he does utilize in his nonalcoholic beverages adding it several times daily. De gopales any history of withdrawal. CODE STATUS: DNR/DNI with advanced directives in place. Confirmed with at bedside. PHYSICAL EXAM: VITALS SIGNS: Blood pressure initially 144/64, heart rate 77, respiratory rate 18, t emperature 36.8, pulse ox 93% on room air. Repeated blood pressure recently on exam is 110/63, heart rate 75, respiratory rate 16, pulse ox 96% on 2 L by nasal cannula. GENERAL: No acute distress. V justine pleasant, frail, elderly gentleman is lying quietly in bed. His is at bedside as well as hi s son. HEAD: Normocephalic, atraumatic. EYES: Extraocular muscles are intact. Pupils equal, roun d, with decreased reactivity to light bilaterally and symmetric. No scleral icterus or conjunctival injection. ENT: Mucous membranes appear moist. No oropharyngeal erythema. Dentures in place. No nasal discharge. NECK: Supple, trachea midline. CV: Quite distant heart sounds with fairly regular rhythm. Patient has a holosystolic murmur, greatest at the left sternal border. No chest wall tend erness to palpation. RESPIRATORY: Diminished at the bases. No wheezes or rhonchi appreciated. Unl abored breathing. ABDOMEN: Slightly distended. Patient complains of bladder discomfort with palpat ion over the lower abdomen, but no rebound, guarding, or masses are appreciated. Positive bowel soun ds. : No suprapubic tenderness to palpation. Patient does report some bladder discomfort due to feeling like he needs to void. No Leggett catheter in place. EXTREMITIES: Trace lower extremity zaria a. Patient with 1+ pedal pulses bilaterally and symmetric. NEURO: Grossly nonfocal, no facial droo ping. Generalized weakness. Moves all extremities, upper and lower, while lying in bed. PSYCH: Th ought process, content and questions are appropriate. Patient is awake, alert, and oriented x3. EKG reviewed myself showing atrial fibrillation in the 70s with occasional PVC. Patient with Q-waves in the inferior and anteroseptal leads. QTc is 453. LABORATORY STUDIES: WBC 6.56, H and H 17.2 and 50.5, MCV 83.9, platelet count 143. Patient with a n eutrophilia of 92.7%, 0.8% bands. PT 18.9, INR 1.57, PTT 47.6, D-dimer 0.27. Sodium is 134, potass ium 4.4, chloride 101, CO2 22, BUN 12, creatinine 0.9, glucose 110, calcium 8.7. Chest x-ray: Image reviewed myself. Report is still pending. Reviewed and discussed with ED provid er showing cardiomegaly with some pulmonary vascular congestion. No effusions appreciated. No conso lidations. ASSESSMENT AND PLAN: This is a very pleasant 82-year-old gentleman with a history of coronary artery disease, atrial fibrillation on anticoagulation and BPH who presents to the emergency department wit h progressive shortness of breath and some central chest pressure. 1. Dyspnea. Differential diagnosis including chronic obstructive pulmonary disease exacerbation sharona bhupinder congestive heart failure decompensation. Patient reports having a recent echocardiogram complete d on outpatient basis. This was done with [facility] and we will try to obtain patient's recent records, bu t may need to consider repeating echocardiogram during stay. Patient received nebulizer treatment as well as a dose of Lasix after which he has been diuresing appropriately. He reports his shortness o f breath has improved. We will continue with nebulizers, but hold off on steroid use and will hold o ff on additional dosing of Lasix as patient has had multiple voids and continues to urinate well. He does have a history of BPH and he is concerned regarding any obstruction. 2. Chest pressure, possibly related to chronic obstructive pulmonary disease and hypoxia versus jono nary artery disease and angina. The patient's troponin is negative. His D-dimer was also found to b e negative in setting of recent travel. The patient without any calf pain or increased swelling. We will hold off on additional evaluation given the specificity of the D-dimer. The patient's BTMP was elevated at 2200. 3. Chronic medical conditions: a. Atrial fibrillation, currently rate controlled. Continue with anticoagulation. b. Hypothyroidism. Resume patient's levothyroxine replacement. c. BPH. Continue patient's finasteride and tamsulosin. Family plans to bring in his home medicatio ns as he will initially be under observation status. d. History of valvular heart disease. Monitor the patient's condition closely with ongoing diuresis . 4. Fluid, electrolytes, nutrition: Saline lock IV. Electrolyte monitoring and replacement if neede d. Cardiac diet has been ordered. 5. Fluid restriction in addition to 1500 mL per day at this time. Salt restriction as well. 6. Code status is DNR/DNI. DISPOSITION: Patient admitted to observation status initially on PCU pending his clinical progressio n with diuresis and nebulizer treatments for his dyspnea. We will also plan to monitor troponin and trend given patient's complaint of chest pressure. Of note, he and his do note that this pain d oes feel quite different from his previous experiences during his MIs of left shoulder pain with dysp mukesh. /[id number]/MODL
[2018-01-05] MEDS ORDERED: FUROSEMIDE 20 MG TAB PO SCH (09:00)
--- NOTE | 2018-01-05 18:09 | PDMN ---
Medical Necessity Medical necessity: est los>2mn for management of heart failure with transition to oral Lasix; comorbid CAD, afib , valvular heart disease, and etoh dependence ; per order and progress note 01/03/18
--- NOTE | 2018-01-10 14:35 | ECHO ---
[email or web address] [address] Main: [phone] Fax: Transthoracic Echocardiogram Name: KI ESPAÑA MR#: [id number] Study Date: 01/03/2018 Study Time: 01:44 PM Date of : 1935 Age: 82 year(s) Height: 180.3 cm (71 in.) Weight: 79.38 kg (175 lb.) BSA: 1.99 m2 Gender: Male Examination: Echo Indication: heart failure Image Quality: Technically Difficult Contrast: Requested by: Lis Guevara BP: 97 mmHg/54 mmHg Heart Rate: Rhythm: Atrial fibrillation Indication: heart failure Procedure Staff [employer] Director: Izaiah Queen RDCS Reading Physician: Jordana Murillo MD Requesting Provider: Conclusions: Normal size left ventricle. Mild to moderate LVH. Normal global systolic LV function. EF is 69 %. No regional wall motion abnormality. Normal size right ventricle. Normal RV function. The left atrium is severely dilated. Mild mitral valve regurgitation is present. Mild calcific aortic valve stenosis. Mild tricuspid regurgitation is present. Right ventricular systolic pressure measures 35mmHg. Measurements: Chambers Valvular Assessment AV/MV Valvular Assessment TV/PV Normal Normal Normal Name Value Range Name Value Range Name Value Range IVSd (2D): 1.3 cm (0.6 cm-1.1 AV Vmax: 2.55 m/s (1 m/s-1.7 TR Vmax: 2.76 mm/s ( - ) cm) m/s) TR PGmax: 30 mmHg ( - ) LVDd (2D): 5.1 cm (4.2 cm-5.9 AV maxP mmHg ( - ) syst. PAP: 35 mmHg ( - ) cm) AV meanP mmHg ( - ) PV Vmax: 0.83 m/s (0.6 m/s-0.9 LVDs (2D): 3.1 cm (2.1 cm-4 LVOT Vmax: 0.82 m/s (0.7 m/s-1.1 m/s) cm) m/s) PV PGmax: 3 mmHg ( - ) LVPWd (2D): 1.5 cm (0.6 cm-1 ALCIRA (Vmax): 1.1 cm2 ( - ) cm) ALCIRA (VTI): 1.2 cm ( - ) LVOTd 2.1 cm 2.1 cm mm MV E Vmax: 0.93 m/s ( - ) LVEF (2D): 69 (>=54 %) Continued Measurements: Chambers Valvular Assessment AV/MV Valvular Assessment TV/PV Patient: KI ESPAÑA Study Date: 01/03/2018 Page 1 of 2 01:44 PM Name Value Name Value Name Value LADs Lon.4 cm MV E' Septal: 0.08 m/s CVP (est.): 5 mmHg LA Area: 28.3 cm2 MV E/E' Septal: 11.70 LA Volume: 100 ml MV E/E' Lateral: 10.10 LA Volume Index: 50.3 ml/m2 Findings: Left Ventricle: Normal size left ventricle. Mild to moderate LVH. Normal global systolic LV function. EF is 69 %. No regional wall motion abnormality. Unable to assess diastolic dysfunction. Right Ventricle: Normal size right ventricle. Normal RV function. Left Atrium: The left atrium is severely dilated. Right Atrium: Right atrial enlargement. Mitral Valve: The mitral valve is normal in appearance and function. Mild mitral annular calcification. Mild mitral valve regurgitation is present. No mitral stenosis is present. Aortic Valve: Aortic valve is not well visualized. CA+. There is no aortic valve regurgitation. Mild calcific aortic valve stenosis. Tricuspid Valve: The tricuspid valve is normal in appearance and function. Mild tricuspid regurgitation is present. Right ventricular systolic pressure measures 35mmHg. Pulmonic Valve: Pulmonary valve not well visualized. There is no pulmonic regurgitation seen. Pericardium: Trivial pericardial effusion. (No Signature Object) Patient: KI ESPAÑA Study Date: 01/03/2018 Page 2 of 2 01:44 PM [id number]
== END 2018-01-04 14:08 | disposition home or self-care (01) ==
LOC: F2W 05:22
PROVIDERS: ADMIT Family Medicine; ATTEND Hospitalist
DX: I50.9 Heart failure, unspecified (principal); I25.10 Atherosclerotic heart disease of native coronary artery without angina pectoris; I48.91 Unspecified atrial fibrillation; F10.20 Alcohol dependence, uncomplicated; F17.210 Nicotine dependence, cigarettes, uncomplicated; I11.0 Hypertensive heart disease with heart failure; E78.5 Hyperlipidemia, unspecified; E66.9 Obesity, unspecified; E03.9 Hypothyroidism, unspecified; N40.0 Benign prostatic hyperplasia without lower urinary tract symptoms; Z79.01 Long term (current) use of anticoagulants; Z79.82 Long term (current) use of aspirin; Z82.49 Family history of ischemic heart disease and other diseases of the circulatory system; Z95.5 Presence of coronary angioplasty implant and graft; Z66 Do not resuscitate
CPT/HCPCS: 93005; 97161; 99285; G8978; G8979; G8980; 84484-PO; J1940

== ENCOUNTER 2018-01-10 09:18 | Inpatient (IN) | payer OTHER, MEDICARE ==
[2018-01-10] MEDS ORDERED: NS 500 ML IV ONE (09:38)
--- NOTE | 2018-01-10 09:39 | CPEKG ---
Heart Rate: 76 RR Interval: 789 QRSD Interval: 82 QT Interval: 420 QTC Interval: 473 QRS [place]: -19 EKG Severity - ABNORMAL ECG - EKG Impression: ATRIAL FIBRILLATION, V-RATE 59-93 EKG Impression: PROBABLE INFERIOR INFARCT, AGE INDETERMINATE Electronically Signed By: Librado Cardozo 11-Jan-2018 16:35:21
--- NOTE | 2018-01-10 09:45 | EDPHY ---
HPI/HX/ROS/PE/MDM Narrative: CHIEF COMPLAINT:Dizziness, vomiting, hypotension HPI: This patient is an anticoagulated 82 year old male with past medical history significant for atrial fibrillation (Pradaxa), CAD s/p stent placement, valvular heart disease, and BPH. He presents today with dizziness, hypotension, and vomiting. He was admitted 01/03/18 for CHF exacerbation and treated with Lasix. He feels he has not had much water in the past few days, and has felt constipated. Four days ago, he began feeling dizzy and lightheaded. This has steadily worsened. This morning, he had room-spinning dizziness and felt disoriented, causing him to fall. Additionally, when he tried to reach his arm up, it became uncontrollable and was "going in circles". He had an episode of metallic-smelling dark brown emesis this morning as well. He states he has been taking iron supplements for anemia. He denies any known blood in his stool. No abdominal pain. The patient denies chest pain, shortness of breath, headache, or other associated symptoms. REVIEW OF SYSTEMS: Aside from elements discussed in the HPI, a comprehensive 10-point review of systems was reviewed and is negative. PMH: CAD s/p stent placement x5. Atrial fibrillation (Pradaxa). Valvular heart disease. BPH. Hypothyroidism. CHF. SOCIAL HISTORY: at bedside. Lives in [place]. Retired. PHYSICAL EXAM: General:Patient is alert, in no acute distress. ENT:Eyes are normal to inspection. ENT inspection normal. Neck: Normal inspection. Full range of motion. Respiratory:No respiratory distress. Breath sounds normal bilaterally. Cardiovascular: Regular rate and rhythm. Strong peripheral pulses. Normal cap refill. Abdomen:The abdomen is nontender to palpation. There are no peritoneal signs. There are normal bowel sounds. Back: Normal to inspection. No tenderness to palpation. Skin: Normal color. No rash. Warm and dry. Extremities: Normal appearance. Full range of motion. Neuro: Oriented x3. Normal motor function. Normal sensory function. ED Course: 82 y/o male presents following several days of dizziness and weakness and an episode of coffee-ground emesis. BP 80/40 at triage. Plan for EKG, CT head, labs including CBC, chemistries, coag panel, BNP, troponin. Plan to administer bolus of 500mL IV NS. EKG was ordered and interpreted by myself. Please see [employer] system for official reading. 10:05 Patient's hematocrit is severely low at 19. Plan to admit for GI bleed. Plan for type and screen, transfusion. 10:09 Reviewed past medical records. Previous hematocrits were around 34 in October 2017. Spoke with Dr. Sprague, dance master. He will scope the patient tomorrow. Plan to administer 80mg IV Protonix. Plan to administer an additional 1L IVF. 10:50 Spoke with hospitalist service. Dr. Holt accepts admission for GI Bleed. I spent a total of 45 minutes of critical care time in obtaining history, performing a physical exam, bedside monitoring of interventions, collecting and interpreting tests and discussion with consultants but not including time spent performing procedures. - Data Points Imaging Results: Imaging Impressions Head CT 01/10/18 10:05 Impression: 1. No acute intracranial findings. If symptoms persist and clinical suspicion warrants, consider MRI. 2. Diffuse cerebral atrophy with periventricular and subcortical low attenuation consistent with chronic microvascular ischemic gliosis. 3. Additional findings as above. Findings discussed with Maury Vitale MD 01/10/2018 at 11:05. Imaging: Discussed imaging studies w/ crew caller Radiologist Laboratory Results: Laboratory Results 01/10/18 09:35 01/10/18 09:35 01/10/18 01/10/18 01/10/18 10:15 09:45 09:35 WBC RBC Hgb Hct MCV MCH MCHC RDW Plt Count MPV Neut % (Auto) Lymph % (Auto) Rolette % (Auto) Eos % (Auto) Baso % (Auto) Nucleat RBC Rel Count Absolute Neuts (auto) Absolute Lymphs (auto) Absolute Monos (auto) Absolute Eos (auto) Absolute Basos (auto) Absolute Nucleated RBC Immature Gran % Immature Gran # Platelet Estimate Oval Macrocytes Elliptocytes Acanthocytes (Spur) Smear Review By PT INR APTT Sodium 134 mEq/L L mEq/L (135-145) Potassium 3.9 mEq/L mEq/L (3.3-5.0) Chloride 101 mEq/L mEq/L (97-110) Carbon Dioxide 21 mEq/l L mEq/l (22-31) Anion Gap 12 mEq/L mEq/L (8-16) BUN 54 mg/dL H mg/dL (7-23) Creatinine 0.9 mg/dL mg/dL (0.7-1.3) Estimated GFR > 60 Glucose 105 mg/dL H mg/dL (70-100) Calcium 8.3 mg/dL L mg/dL (8.5-10.4) POC Troponin I 0.00 ng/mL ng/mL (0.00-0.08) NT-Pro-B Natriuret Pep 1410 pg/mL H pg/mL (0-450) Patient ABO/Rh O POSITIVE Antibody Screen NEGATIVE Crossmatch IS Only See Detail 01/10/18 01/10/18 09:35 09:35 WBC 7.79 10^3/uL 10^3/uL (3.80-9.50) RBC 1.92 10^6/uL L 10^6/uL (4.40-6.38) Hgb 6.5 g/dL L g/dL (13.7-17.5) Hct 19.1 % L % (40.0-51.0) MCV 99.5 fL fL (81.5-99.8) MCH 33.9 pg pg (27.9-34.1) MCHC 34.0 g/dL g/dL (32.4-36.7) RDW 15.6 % H % (11.5-15.2) Plt Count 179 10^3/uL 10^3/uL (150-400) MPV 11.0 fL fL (8.7-11.7) Neut % (Auto) 66.1 % % (39.3-74.2) Lymph % (Auto) 20.4 % % (15.0-45.0) Rolette % (Auto) 9.8 % % (4.5-13.0) Eos % (Auto) 2.8 % % (0.6-7.6) Baso % (Auto) 0.3 % % (0.3-1.7) Nucleat RBC Rel Count 0.0 % % (0.0-0.2) Absolute Neuts (auto) 5.15 10^3/uL 10^3/uL (1.70-6.50) Absolute Lymphs (auto) 1.59 10^3/uL 10^3/uL (1.00-3.00) Absolute Monos (auto) 0.76 10^3/uL 10^3/uL (0.30-0.80) Absolute Eos (auto) 0.22 10^3/uL 10^3/uL (0.03-0.40) Absolute Basos (auto) 0.02 10^3/uL 10^3/uL (0.02-0.10) Absolute Nucleated RBC 0.00 10^3/uL 10^3/uL (0-0.01) Immature Gran % 0.6 % % (0.0-1.1) Immature Gran # 0.05 10^3/uL 10^3/uL (0.00-0.10) Platelet Estimate ADEQUATE (ADEQ) Oval Macrocytes 1+ H Elliptocytes 1+ H Acanthocytes (Spur) 1+ H Smear Review By Pending PT 21.8 SEC H SEC (12.0-15.0) INR 1.89 H (0.83-1.16) APTT 62.2 SEC H SEC (23.0-38.0) Sodium Potassium Chloride Carbon Dioxide Anion Gap BUN Creatinine Estimated GFR Glucose Calcium POC Troponin I NT-Pro-B Natriuret Pep Patient ABO/Rh Antibody Screen Crossmatch IS Only Medications Given: Sodium Chloride (Ns) 1,000 mls @ 250 mls/hr IV ONCE ONE Stop: 01/10/18 16:57 Last Admin: 01/10/18 15:00 Dose: Not Given Discontinued Medications Sodium Chloride (Ns) 500 mls @ 0 mls/hr IV EDNOW ONE; Wide Open PRN Reason: Protocol Stop: 01/10/18 09:39 Last Admin: 01/10/18 10:06 Dose: 500 mls Sodium Chloride (Ns) 1,000 mls @ 0 mls/hr IV ONCE ONE; Wide Open PRN Reason: Protocol Stop: 01/10/18 10:07 Last Admin: 01/10/18 10:35 Dose: 1,000 mls Sodium Chloride (Ns) 1,000 mls @ 0 mls/hr IV ONCE ONE PRN Reason: Wide Open Stop: 01/10/18 14:22 Last Admin: 01/10/18 15:05 Dose: 1,000 mls Pantoprazole Sodium (Protonix) 80 mg IVP EDNOW ONE Stop: 01/10/18 10:49 Last Admin: 01/10/18 10:52 Dose: 80 mg Point of Care Test Results: Chemistry 01/10/18 09:45 POC Troponin I 0.00 ng/mL ng/mL (0.00-0.08) General Time Seen by Provider: 01/10/18 09:36 Initial Vital Signs: Initial Vital Signs Temperature (C) 36.7 C 01/10/18 09:23 Heart Rate 76 01/10/18 09:23 Respiratory Rate 18 01/10/18 09:23 Blood Pressure 80/40 L 01/10/18 09:23 O2 Sat (%) 98 01/10/18 09:23 O2 Delivery Mode Room Air Allergies/Adverse Reactions: clopidogrel bisulfate [From Plavix] Allergy (Severe, Verified 01/10/18 09:23) MUSCLE WEAKNESS atorvastatin [Atorvastatin] Allergy (Verified 01/10/18 09:23) MUSCLE PAIN Home Medications: Medication Instructions Recorded Dabigatran Etexilate Mesyl 150 mg PO BID 07/21/17 [Pradaxa 150 MG (*)] Finasteride [Proscar 5 MG (*)] 2.5 mg PO DAILY 07/21/17 Losartan Potassium [Cozaar 25 mg 12.5 mg PO HS 07/21/17 (*)] Tamsulosin HCl [Flomax 0.4 MG (*)] 0.8 mg PO DAILY 07/21/17 Aspirin [Aspirin 81mg (*)] 81 mg PO HS 01/04/18 Furosemide [Lasix 20 MG (*)] 20 mg PO DAILY #30 tab 01/04/18 Levothyroxine [Synthroid 75 mcg 75 mcg PO DAILY06 01/04/18 (*)] Metoprolol Succinate Xr [Toprol Xl 50 mg PO BID 01/04/18 50 mg (*)] Potassium Chloride 10 meq PO DAILY #30 tab.er.prt 01/04/18 Rosuvastatin Calcium [Crestor 20mg 10 mg PO HS 01/04/18 (*)] Herbals/Supplements -Info Only 1 ea PO DAILY 01/10/18 Multivitamins [Multivitamin (*)] 0.5 each PO BID 01/10/18 Departure - Departure Disposition: [facility] Acute Clinical Impression: GI bleed Condition: Fair Report Scribed for: Maury Vitale Report Scribed by: Mitra Davidson Date of Report: 06/19/18 Time of Report: 09:45 Physician Review and Approval Statement: Portions of this note were transcribed by an ED scribe. I personally performed the history, physical exam, and medical decision making; and confirm the accuracy of the information in the transcribed note.
[2018-01-10 09:58] LABS: PLATELET COUNT 179 10^3/uL (150-400)
[2018-01-10] MEDS ORDERED: NS 1,000 ML IV ONE ×3 (10:06→14:21)
[2018-01-10] MEDS ORDERED: PANTOPRAZOLE SODIUM 40 MG VIAL IVP ONE (10:48)
[2018-01-10 10:56] LABS: INR 1.89 (0.83-1.16); PROTIME(PATIENT) 21.8 SEC (12.0-15.0)
[2018-01-10] MEDS ORDERED: oxyCODONE IR 5 MG TAB PO PRN (12:58)
[2018-01-10] MEDS ORDERED: ONDANSETRON DISINTEGRATING 4 MG TAB PO PRN (12:58)
[2018-01-10] MEDS ORDERED: ACETAMINOPHEN 325 MG TAB PO PRN (12:58)
[2018-01-10] MEDS ORDERED: PROMETHAZINE HCL 25 MG/ML INJ IVP PRN (12:58)
[2018-01-10] MEDS ORDERED: ONDANSETRON 4 MG/2 ML VIAL IVP PRN (12:58)
--- NOTE | 2018-01-10 14:24 | PDGENHP ---
History and Physical - Chief Complaint dizzyness - History of Present Illness 82 yo M with PMH of CAD, a fib on chronic AC presenting with several days of lightheadedness/dizzyness in the setting of dark/tarry stools and more recently several episodes of vomiting dark/red vomit he suspected was blood due to the appearance and metallic taste. He notes that he initially assumed his stools were dark because he was taking iron. He became increasingly dizzy and weak to the point where he actually fell and felt confused. He has never had similar issues in the past. He denies abdominal pain. He has not had bright red blood in his stool. He denies chest pain or sob. He did not take his pradaxa today but he did take all of his BP medications. History Information - Allergies/Home Medication List Allergies/Adverse Reactions: clopidogrel bisulfate [From Plavix] Allergy (Severe, Verified 01/10/18 09:23) MUSCLE WEAKNESS atorvastatin [Atorvastatin] Allergy (Verified 01/10/18 09:23) MUSCLE PAIN Home Medications: Dabigatran Etexilate Mesyl [Pradaxa 150 MG (*)] 150 mg PO BID 07/21/17 [Last Taken 01/09/18 21:00] Finasteride [Proscar 5 MG (*)] 2.5 mg PO DAILY 07/21/17 [Last Taken 01/10/18] Losartan Potassium [Cozaar 25 mg (*)] 12.5 mg PO HS 07/21/17 [Last Taken ] Tamsulosin HCl [Flomax 0.4 MG (*)] 0.8 mg PO DAILY 07/21/17 [Last Taken 01/09/18 ] Aspirin [Aspirin 81mg (*)] 81 mg PO HS 01/04/18 [Last Taken 01/09/18] Levothyroxine [Synthroid 75 mcg (*)] 75 mcg PO DAILY06 01/04/18 [Last Taken ] Metoprolol Succinate Xr [Toprol Xl 50 mg (*)] 50 mg PO BID 01/04/18 [Last Taken 01/10/18] Rosuvastatin Calcium [Crestor 20mg (*)] 10 mg PO HS 01/04/18 [Last Taken ] Herbals/Supplements -Info Only 1 ea PO DAILY 01/10/18 [Last Taken Unknown] Multivitamins [Multivitamin (*)] 0.5 each PO BID 01/10/18 [Last Taken 01/09/18 21:00] I have personally reviewed and updated: family history, medical history, social history, surgical history - Past Medical History atrial fibrillation, coronary artery disease (s/p multiple stents), COPD, hypertension, hyperlipidemia Additional medical history: hypothyroid. BPH - Surgical History Reports: coronary stent (x 5) Additional surgical history: tonsills - Family History Positive for: male first degree with history of premature CAD - Social History Smoking Status: Current every day smoker Alcohol Use: Heavy (drinks 3-4 drinks/day, 6-8 oz heavy etoh) Drug Use: None Additional social history: , accompanied by his son and Review of Systems Review of Systems: ROS: 10pt was reviewed & negative except for what was stated in HPI & below Physical Exam Physical Exam: Temp Pulse Resp BP Pulse Ox 36.4 C 69 18 98/54 L 99 01/10/18 11:14 01/10/18 12:46 01/10/18 12:46 01/10/18 12:46 01/10/18 12:46 O2 (L/minute) 36.6 Constitutional: no apparent distress, appears nourished Eyes: PERRL, pale conjunctiva Ears, Nose, Mouth, Throat: moist mucous membranes, hearing normal Cardiovascular: regular rate and rhythym, no murmur, rub, or gallop, No edema Respiratory: no respiratory distress, no rales or rhonchi, clear to auscultation Gastrointestinal: normoactive bowel sounds, soft, non-tender abdomen Skin: warm, No normal color Musculoskeletal: no muscle tenderness Neurologic: AAOx3 Psychiatric: interacting appropriately, not anxious, not encephalopathic Lab Data & Imaging Review 01/10/18 17:00 01/10/18 09:35 WBC 7.79 10^3/uL (3.80-9.50) 01/10/18 09:35 RBC 1.92 10^6/uL (4.40-6.38) L 01/10/18 09:35 Hgb 6.5 g/dL (13.7-17.5) L 01/10/18 09:35 Hct 19.1 % (40.0-51.0) L 01/10/18 09:35 MCV 99.5 fL (81.5-99.8) 01/10/18 09:35 MCH 33.9 pg (27.9-34.1) 01/10/18 09:35 MCHC 34.0 g/dL (32.4-36.7) 01/10/18 09:35 RDW 15.6 % (11.5-15.2) H 01/10/18 09:35 Plt Count 179 10^3/uL (150-400) 01/10/18 09:35 MPV 11.0 fL (8.7-11.7) 01/10/18 09:35 Neut % (Auto) 66.1 % (39.3-74.2) 01/10/18 09:35 Lymph % (Auto) 20.4 % (15.0-45.0) 01/10/18 09:35 Day % (Auto) 9.8 % (4.5-13.0) 01/10/18 09:35 Eos % (Auto) 2.8 % (0.6-7.6) 01/10/18 09:35 Baso % (Auto) 0.3 % (0.3-1.7) 01/10/18 09:35 Nucleat RBC Rel Count 0.0 % (0.0-0.2) 01/10/18 09:35 Absolute Neuts (auto) 5.15 10^3/uL (1.70-6.50) 01/10/18 09:35 Absolute Lymphs (auto) 1.59 10^3/uL (1.00-3.00) 01/10/18 09:35 Absolute Monos (auto) 0.76 10^3/uL (0.30-0.80) 01/10/18 09:35 Absolute Eos (auto) 0.22 10^3/uL (0.03-0.40) 01/10/18 09:35 Absolute Basos (auto) 0.02 10^3/uL (0.02-0.10) 01/10/18 09:35 Absolute Nucleated RBC 0.00 10^3/uL (0-0.01) 01/10/18 09:35 Immature Gran % 0.6 % (0.0-1.1) 01/10/18 09:35 Immature Gran # 0.05 10^3/uL (0.00-0.10) 01/10/18 09:35 Platelet Estimate ADEQUATE (ADEQ) 01/10/18 09:35 Oval Macrocytes 1+ H 01/10/18 09:35 Elliptocytes 1+ H 01/10/18 09:35 Acanthocytes (Spur) 1+ H 01/10/18 09:35 PT 21.8 SEC (12.0-15.0) H 01/10/18 09:35 INR 1.89 (0.83-1.16) H 01/10/18 09:35 APTT 62.2 SEC (23.0-38.0) H 01/10/18 09:35 Sodium 134 mEq/L (135-145) L 01/10/18 09:35 Potassium 3.9 mEq/L (3.3-5.0) 01/10/18 09:35 Chloride 101 mEq/L (97-110) 01/10/18 09:35 Carbon Dioxide 21 mEq/l (22-31) L 01/10/18 09:35 Anion Gap 12 mEq/L (8-16) 01/10/18 09:35 BUN 54 mg/dL (7-23) H 01/10/18 09:35 Creatinine 0.9 mg/dL (0.7-1.3) 01/10/18 09:35 Estimated GFR > 60 01/10/18 09:35 Glucose 105 mg/dL (70-100) H 01/10/18 09:35 Calcium 8.3 mg/dL (8.5-10.4) L 01/10/18 09:35 POC Troponin I 0.00 ng/mL (0.00-0.08) 01/10/18 09:45 NT-Pro-B Natriuret Pep 1410 pg/mL (0-450) H 01/10/18 09:35 Patient ABO/Rh O POSITIVE 01/10/18 10:15 Antibody Screen NEGATIVE 01/10/18 10:15 Crossmatch IS Only See Detail 01/10/18 10:15 Visualized and Interpreted imaging results: Yes Interpretation: head ct : negative Visualized and Interpreted EKG results: Yes EKG additional interpertation: a fib normal rate Assessment & Plan Assessment: GI bleed (Acute) 82 yo M with hx of CAD, a fib on chronic AC presenting with GI bleed and severe anemia # severe acute blood loss anemia: transfused 2 units with repeat h/h not improved, presumed 2/2 GI bleed as next. Will continue to transfuse prn hct < 21. Discussed with GI who feel that given lack of ongoing obvious blood loss that this does not necessarily indicate active bleed. Will continue serial h/h # GI bleed: presumably upper bleed, continue pantoprazole IV. GI involved as above with plan to scope in am unless bleeding increases and will then perform tonight. Patient does have drinking hx however no hx of or stigmata of cirrhosis so doubt this represents variceal bleed. # a fib, persistent: noted on ecg, rate controlled, did have his metoprolol this am but given his hypotension holding metoprolol for now unless RVR develops. holding pradaxa given acute bleed. If h/h continues to decline will start praxbind. # hypotension: thus far has been relatively fluid responsive, continue to hold BP meds including losartan, lasix and metoprolol--consider starting low dose metop if hr increases as above # CAD: trop of 0, no chest pain, will get repeat trop given bleed, recent echo showing EF of 69%, no significant vhd # bph: continue finasteride # hypothyroid: continue lt4 # IP status, patient very high risk with extremely low h/h, concern for active bleeding, requires ICU care Care plan reviewed with Dr. Sprague, further hx obtained from family present at bedside >60 min critical care time spent in eval/mgmt of above
[2018-01-10] MEDS ORDERED: PANTOPRAZOLE SODIUM 40 MG VIAL IVP SCH (16:48)
[2018-01-10] MEDS: MULTIVITAMINS 1 EACH TAB PO SCH (20:27)
[2018-01-10] MEDS: ROSUVASTATIN CALCIUM 20 MG TAB PO SCH (20:28)
[2018-01-10] MEDS: PANTOPRAZOLE SODIUM 40 MG VIAL IVP SCH (20:36)
[2018-01-11] MEDS: PANTOPRAZOLE SODIUM 40 MG VIAL IVP SCH ×4 (02:23→21:06)
[2018-01-11] MEDS ORDERED: NS 1,000 ML IV ONE (04:30)
[2018-01-11] MEDS: LEVOTHYROXINE 75 MCG TAB PO SCH (05:15)
[2018-01-11] MEDS ORDERED: NS 500 ML IV ONE (05:30)
[2018-01-11] MEDS ORDERED: EPINEPHrine 1 MG/10 ML SYR IVP ONE (08:14)
[2018-01-11] MEDS ORDERED: PROPOFOL 200 MG/20 ML VIAL ONE (08:16)
[2018-01-11] MEDS ORDERED: LIDOCAINE 2% 5 ML SDV ONE (08:16)
[2018-01-11] MEDS ORDERED: NALOXONE HCL 0.4 MG/ML INJ IVP PRN (08:21)
--- NOTE | 2018-01-11 08:21 | PDANEPAE ---
ANE Past Medical History - Pulmonary History Hx Oxygen in Use at Home: No Hx Sleep Apnea: No - Endocrine History Hx Diabetes: No - Chronic Pain History Chronic Pain: No ANE Review of Systems Review of Systems: ANE Patient History - Allergies Allergies/Adverse Reactions: clopidogrel bisulfate [From Plavix] Allergy (Severe, Verified 01/10/18 09:23) MUSCLE WEAKNESS atorvastatin [Atorvastatin] Allergy (Verified 01/10/18 09:23) MUSCLE PAIN - Home Medications Home Medications: Dabigatran Etexilate Mesyl [Pradaxa 150 MG (*)] 150 mg PO BID 07/21/17 [Last Taken 01/09/18 21:00] Finasteride [Proscar 5 MG (*)] 2.5 mg PO DAILY 07/21/17 [Last Taken 01/10/18] Losartan Potassium [Cozaar 25 mg (*)] 12.5 mg PO HS 07/21/17 [Last Taken ] Tamsulosin HCl [Flomax 0.4 MG (*)] 0.8 mg PO DAILY 07/21/17 [Last Taken 01/09/18 ] Aspirin [Aspirin 81mg (*)] 81 mg PO HS 01/04/18 [Last Taken 01/09/18] Levothyroxine [Synthroid 75 mcg (*)] 75 mcg PO DAILY06 01/04/18 [Last Taken ] Metoprolol Succinate Xr [Toprol Xl 50 mg (*)] 50 mg PO BID 01/04/18 [Last Taken 01/10/18] Rosuvastatin Calcium [Crestor 20mg (*)] 10 mg PO HS 01/04/18 [Last Taken ] Herbals/Supplements -Info Only 1 ea PO DAILY 01/10/18 [Last Taken Unknown] Multivitamins [Multivitamin (*)] 0.5 each PO BID 01/10/18 [Last Taken 01/09/18 21:00] - Smoking Hx Smoking Status: Current every day smoker - Alcohol Use Alcohol Use: Heavy (drinks 3-4 drinks/day, 6-8 oz heavy etoh) ANE Labs/Vital Signs - Labs Result Diagrams: 01/11/18 05:43 01/11/18 05:43 - Vital Signs Blood Pressure: 100/51 Heart Rate: 65 Respiratory Rate: 18 O2 Sat (%): 96 Height: 180.34 cm Weight: 77.111 kg ANE Physical Exam - Airway Neck exam: FROM Mallampati Score: Class 2 Mouth exam: poor dentition - Pulmonary Pulmonary: no respiratory distress, no rales or rhonchi, reduced air movement - Cardiovascular Cardiovascular: irregularly irregular - ASA Status ASA Status: IV ANE Anesthesia Plan Anesthesia Plan: MAC
[2018-01-11] MEDS ORDERED: FINASTERIDE 5 MG TAB PO SCH ×2 (09:00→21:00)
[2018-01-11] MEDS ORDERED: TAMSULOSIN HCL 0.4 MG CAP PO SCH ×2 (09:00→21:00)
--- NOTE | 2018-01-11 09:00 | GCON ---
[f rep st] CONSULTATION DATE OF CONSULTATION: 01/11/2018 CONSULTING PHYSICIAN: Gamaliel Holt MD REASON FOR CONSULTATION: Black tarry stools. CHIEF COMPLAINT: Black tarry stools. HISTORY OF PRESENT ILLNESS: Mr. Handy is an 82-year-old male with a history of COPD, atrial fibrillation on anticoagulation, coronary artery disease with stents, who presents to [facility] with complaints of lightheadedness and dizziness. Rashi was doing well until the morning of admission when suddenly threw up what he thought was bright red blood. He states that several days prior his stools were noted to be dark in color, which he thought was secondary to recent intake of iron pills. He got progressively dizzy and weak and thus came for further evaluation. He denies any exacerbating or alleviating factors to his symptoms. He denies any chest pain, shortness of breath, or bright red blood per rectum. His last colonoscopy was many years ago. On evaluation in the ER, he was noted to have a hemoglobin of 6.5 and hematocrit of 19.1. I am being asked by Dr. Holt to evaluate this patient in consultation regarding his melenic stools. PAST MEDICAL HISTORY: 1. COPD. 2. Hypertension. 3. Hyperlipidemia. 4. Coronary artery disease. 5. Atrial fibrillation. 6. Hypothyroidism. 7. BPH. PAST SURGICAL HISTORY: 1. Tonsillectomy. 2. Coronary artery stents. ALLERGIES: Plavix, atorvastatin. MEDICATIONS: Pradaxa, finasteride, losartan, tamsulosin, aspirin, levothyroxine , metoprolol, Crestor, multivitamin. FAMILY HISTORY: Coronary artery disease. SOCIAL HISTORY: Positive alcohol and tobacco use. REVIEW OF SYSTEMS: A 14-point comprehensive review of systems was asked. Pertinent positives and negatives per HPI. PHYSICAL EXAM: VITALS: Blood pressure 100/51, temperature 36.6, respirations 18, heart rate 65. GENERAL: Awake, alert, and oriented x3. No distress. HEENT: Anicteric. Moist mucosa. NECK: No JVD. CARDIOVASCULAR: Regular rate and rhythm. Positive S1, S2. No gallops appreciated. LUNGS: Clear to auscultation bilaterally. No rales, wheezes or rhonchi. ABDOMEN: Soft, nontender, nondistended. Positive bowel sounds. EXTREMITIES: No clubbing, cyanosis or edema. NEUROLOGIC: Two through 12 grossly intact. PSYCH: Normal affect. MUSCULOSKELETAL: No obvious joint effusions or tenderness. SKIN: Nonicteric, warm. LYMPH: No lymphadenopathy. BLOOD WORK: Hemoglobin 7.0, hematocrit 20.3, platelets 125. INR 1.89. Sodium 137, potassium 3.8, chloride 113, bicarb 19, BUN 31, down from 54. ASSESSMENT AND PLAN: 1. Melenic stools- with post hemorrhagic anemia. Taking aspirin and Pradaxa. Etiology? Peptic ulcer disease versus other? At this time, recommend to proceed with upper endoscopy to delineate the cause of his symptoms. The risks of infection, bleeding, perforation, and sedation were discussed. Due to his obstructive pulmonary disease as well as coronary artery disease, he is at increased risk of sedation. Will consult Anesthesiology for support. 2. History of coronary artery disease. 3. History of chronic obstructive pulmonary disease. 4. Hyperlipidemia. 5. Hypertension. 6. Hypothyroidism. Thank you for the consultation! /[id number]/MODL MTDD
[2018-01-11] MEDS ORDERED: ONDANSETRON 4 MG/2 ML VIAL ONE (09:13)
--- NOTE | 2018-01-11 09:18 | POSTANESTH ---
Post Anesthetic Evaluation Cardiovascular Status: Normal, Stable, Similar to Pre-Op Cond, Other, See Comment (Patient had one vagal episode, HR dropped to 30b/min then one full monitor screen of asystole with preserved spontaneous ventilation. HR came back without medical intervention. No other bradycardia episodes) Respiratory Status: Normal, Stable, Similar to Pre-op Cond. Level of Consciousness/Mental Status: Moderately Sleepy Pain Control: Adequate, Prn Tx Ordered Nausea/Vomiting Control: Adequate, Prn Tx Ordered Complications Possibly Related to Anesthesia: None Noted
--- NOTE | 2018-01-11 10:10 | GPN ---
[f rep st] PROCEDURE NOTE DATE OF PROCEDURE: 01/11/2018 PROCEDURE: Enteroscopy with clipping/gold probe. INDICATIONS: Mr. Handy is an 82-year-old male who presents for evaluation of black stools as well as an episode of hematemesis/post hemorrhagic anemia. He presents for further evaluation. CONSENT: Risks, benefits, and alternatives of the procedure were discussed in great detail with the patient. Risks of infection, bleeding, perforation, and sedation were discussed. All questions answered and informed consent was obtained. MEDICATIONS: Propofol. Please see anesthesia record for details. ESTIMATED BLOOD LOSS: Insignificant. EGD/ENTEROSCOPY EXAMINATION: The Olympus upper endoscope was introduced into the mouth and advanced to the esophagus. The proximal, mid, and distal esophagus was normal in appearance. The stomach was entered and closely examined, including retroflexed view of the angularis, cardia and fundus. A hiatal hernia was noted. There was a small amount of gross red blood noted throughout the stomach. This was aggressively flushed and suctioned. In the antrum of the stomach a 5 mm clean-based ulcer was noted. Due to fresh blood, but no stigmata of recent bleed, I doubt that this is the cause of bleed. Eventually, a small oozing spot of blood was noted on the posterior wall in the mid body of the stomach approximately 5 cm from the gastroesophageal junction. The area was flushed and suctioned. No obvious ulcer noted, but it did appear to be oozing. Gold Probe was applied and 1 clip was placed. Complete cessation of bleeding noted. The duodenal bulb and 2nd portion of the duodenum were normal in appearance. In the visualized 3rd portion of the stomach, possible gross blood was noted and the scope was withdrawn and a pediatric colonoscope was then utilized to examine the distal duodenum. The pediatric colonoscope was passed into the proximal jejunum (at leasyt 100cms from the pylorus) There was black bloody material noted on the duodenal wall which was aggressively suctioned and flushed with no source seen. Suspect this is old blood. IMPRESSION: 1. Enteroscopy/EGD performed with a area oozing on the posterior wall of the body of the stomach. Clip placed with Gold probe with cessation of bleeding. Also has clean-based ulcer in the antrum of the stomach with no stigmata of bleed. I do not suspect this is the cause of bleeding. 2. In the small bowel, blood was seen. This area was aggressively suctioned and flushed with no obvious site of bleed. 4. Suspect site of bleeding is on the posterior wall of the stomach? RECOMMENDATIONS: 1. PPI infusion. 2. No aspirin products. 3. Monitor H and H. /[id number]/MODL MTDD
[2018-01-11] MEDS: POTASSIUM CL 10 MEQ TAB PO SCH (10:17)
[2018-01-11] MEDS: MULTIVITAMINS 1 EACH TAB PO SCH ×2 (10:17→21:06)
--- NOTE | 2018-01-11 10:45 | PDMN ---
Medical Necessity Medical necessity: Pt meets IP criteria per MD; est los >2 mn for eval/tx of suspected upper GI bleed w/severe acute blood loss anemia, hypotension, vomiting /melena, dizziness & weakness w/confusion & recent fall ; pt very high risk w/ extremely low H/H, concern for active bleeding; admit to ICU for close monitoring, serial H/H, PRBCs, IV Protonix/antiemetics, GI consult & EGD; hx recent hospitalization for tx of heart failure, COPD, AFIB on AC, CAD w/stents, HTN & ETOH abuse; per H&P & order 01/10/18
--- NOTE | 2018-01-11 14:17 | PDINTPN ---
Saturator Operator Progress Note Assessment/Plan: Assessment: GI Bleed: Due to gastric ulcer. Treated endoscopically with resolution of bleeding. Hgb has been stable, as have vitals. Anemia: Due to acute blood loss. Hgb stable. AF: Chronic. Was on anticoagulation, now held. Plan: Continue PPI. Follow H/H. Increase activity, advance diet. Can Tx to SDU. Hold anticoagulation for now. 01/11/18 14:17 01/11/18 14:18 Subjective: Feels better, increased strength, energy. No N/V, no BMs. Appetite improving. Objective: Vital Signs Temp Pulse Resp BP Pulse Ox 37 C 65 16 93/47 L 100 01/11/18 12:00 01/11/18 12:00 01/11/18 12:00 01/11/18 12:00 01/11/18 12:00 Laboratory Results 01/11/18 13:30 01/11/18 05:43 01/10/18 01/11/18 01/12/18 05:59 05:59 05:59 Intake Total 6200 1000 Output Total 425 Balance 6200 575 PT 21.8 SEC (12.0-15.0) H 01/10/18 09:35 INR 1.89 (0.83-1.16) H 01/10/18 09:35 Physical Exam - Physical Exam General Appearance: alert, no apparent distress Neck: normal inspection Respiratory: lungs clear, normal breath sounds Cardiac/Chest: regular rate, rhythm, edema Abdomen: normal bowel sounds, non-tender Skin: normal color, warm/dry Extremities: normal inspection Neuro/Psych: alert, normal mood/affect, oriented x 3 ICD10 Worksheet Patient Problems: Problems Problem Status Onset GI bleed Acute Chest pain Acute
--- NOTE | 2018-01-11 14:57 | GCON ---
[f rep st] CONSULTATION PULMONARY/CRITICAL CARE CONSULTATION DATE OF CONSULTATION: 01/10/2018 REFERRING PHYSICIAN: Gamaliel Holt MD REASON FOR REFERRAL: Evaluation and management of anemia and weakness. HISTORY: The patient is an 82-year-old male with a history of coronary artery disease and chronic at rial fibrillation, on Pradaxa and Plavix, who presented with several days of lightheadedness and dizz iness with some dark tarry stools as well as some vomiting of dark red blood. He became increasingly dizzy and weak and was feeling confused when he came into the hospital. He did not take his Pradaxa today. He was found to have a hemoglobin of 6.5, down from 11, two months ago. PAST MEDICAL HISTORY: 1. Atrial fibrillation. 2. Coronary artery disease, status post stenting. 3. COPD. 4. Hypertension. 5. Hyperlipidemia. MEDICATIONS: At the time of admission include Pradaxa, Proscar, Cozaar, Flomax, aspirin, Synthroid, Toprol, Crestor, and multivitamin. ALLERGIES: Plavix and atorvastatin. SOCIAL HISTORY: The patient continues to smoke. He drinks 3-4 alcoholic beverages daily. FAMILY HISTORY: Unremarkable. REVIEW OF SYSTEMS: A 10-point review of systems adds nothing to the history of present illness. PHYSICAL EXAMINATION: GENERAL: The patient is awake and alert. He is in no acute distress. VITAL SIGNS: Blood pressure is 89/42 with a heart rate of 7. His oxygen saturations are 99% on room air. HEENT: Normocephalic and atraumatic. No icterus. NECK: No JVD. Trachea is midline. CHEST: Ish ar to auscultation. CARDIAC: Irregularly irregular without murmur. ABDOMEN: Soft, nontender. [place] sounds are present. EXTREMITIES: No clubbing, cyanosis, or edema. NEURO: The patient is awake and alert. He has no gross motor or sensory deficits. LABORATORY: Hemoglobin is 6.5, down from 11.3, two months ago. White blood count is 7.8, platelet c ount is 179. Chemistry group shows a sodium of 134. BNP is 1410. Glucose is 105. INR is 1.9. ASSESSMENT: 1. Acute gastrointestinal bleed. The patient appears to have an upper gastrointestinal bleed. He h as a significant anemia, likely related to this. He has a history of alcohol use, but no known cirrh osis. The possible causes of the GI bleeding include gastric or peptic ulcer, esophageal varices, an d a Samantha-Ellington tear. 2. Anemia. This is acute and likely due to a GI blood loss. The patient is symptomatic and has rec eived blood transfusions. 3. Atrial fibrillation. The patient's rate is fairly well controlled. Anticoagulation will be held . It is possible that this can be resumed once the patient's acute illness is resolved. RECOMMENDATIONS: 1. Hold Pradaxa and aspirin. 2. Transfuse packed red blood cells and repeat hemoglobin. 3. GI has been consulted and will likely proceed with endoscopy tomorrow. /[id number]/MODL
--- NOTE | 2018-01-11 15:37 | ASMTCASEMG ---
Living Arrangements What is your living Answers: With Spouse arrangement? Who do you live with? Type Of Residence What kind of residence do Answers: House you live in? Discharge Plan Comments Coordination Status Comments Notes: Patient is an 82yo male with a hx of cad, afib persistant, presenting with GI bleed and severe anemia. Patient is a very high risk with extremely low h/h, concern for active bleeding which requires ICU care. No therapies have been ordered at this time. D/C plan TBD. CM will follow. Date Signed: 01/11/2018 03:36 PM Electronically Signed By:Rosenda Hines LCSW
--- NOTE | 2018-01-11 17:40 | HOSPPROG ---
Hospitalist Progress Note Assessment/Plan: 82 yo M with hx of CAD, a fib on chronic AC presenting with GI bleed and severe anemia # severe acute blood loss anemia: transfused 5 units in setting of GI bleed as next, taken for EGD today with source of bleeding found in stomach and clipped # GI bleed: with source of bleeding found on egd and clipped, presumably gastric ulcer, continue PPI, continue to monitor h/h for signs of recurrent bleeding # a fib, persistent: noted on ecg, rate controlled, holding pradaxa given acute bleed, will resume metoprolol likely in am if bp improved # hypotension: thus far has been relatively fluid responsive, continue to hold BP meds including losartan, lasix and metoprolol--consider starting low dose metop if hr increases as above # CAD: trop of 0, no chest pain, will get repeat trop given bleed, recent echo showing EF of 69%, no significant vhd # bph: continue finasteride # hypothyroid: continue lt4 # IP status, patient high risk with extremely low h/h, concern for active bleeding, requires ICU care Care plan reviewed with Dr. Sprague, further hx obtained from family present at bedside Subjective: patient taken to egd today, did have vagal episode in endo lab, feeling a bit better today, no vomiting Objective: Vital Signs Temp Pulse Resp BP Pulse Ox 37.0 C 72 24 H 93/66 L 98 01/11/18 16:00 01/11/18 16:00 01/11/18 16:00 01/11/18 16:00 01/11/18 16:00 Laboratory Results 01/11/18 13:30 01/11/18 05:43 01/10/18 01/11/18 01/12/18 05:59 05:59 05:59 Intake Total 6200 1000 Output Total 425 Balance 6200 575 PT 21.8 SEC (12.0-15.0) H 01/10/18 09:35 INR 1.89 (0.83-1.16) H 01/10/18 09:35 Constitutional: no apparent distress, appears nourished Eyes: PERRL, pale conjunctiva Ears, Nose, Mouth, Throat: moist mucous membranes, hearing normal Cardiovascular: regular rate and rhythym, no murmur, rub, or gallop, No edema Respiratory: no respiratory distress, no rales or rhonchi, clear to auscultation Gastrointestinal: normoactive bowel sounds, soft, non-tender abdomen Skin: warm, No normal color Musculoskeletal: no muscle tenderness Neurologic: AAOx3 Psychiatric: interacting appropriately, not anxious, not encephalopathic ICD10 Worksheet Patient Problems: Problems Problem Status Onset GI bleed Acute Chest pain Acute
[2018-01-11] MEDS: TAMSULOSIN HCL 0.4 MG CAP PO SCH (18:41)
[2018-01-11] MEDS: FINASTERIDE 5 MG TAB PO SCH (18:41)
[2018-01-11] MEDS: ROSUVASTATIN CALCIUM 20 MG TAB PO SCH (21:06)
[2018-01-12] MEDS: PANTOPRAZOLE SODIUM 40 MG VIAL IVP SCH ×4 (03:36→21:09)
[2018-01-12 04:15] LABS: PLATELET COUNT 131 10^3/uL (150-400)
[2018-01-12] MEDS: LEVOTHYROXINE 75 MCG TAB PO SCH (06:01)
[2018-01-12] MEDS: FINASTERIDE 5 MG TAB PO SCH (08:20)
[2018-01-12] MEDS: POTASSIUM CL 10 MEQ TAB PO SCH (08:20)
[2018-01-12] MEDS: MULTIVITAMINS 1 EACH TAB PO SCH ×2 (08:21→21:10)
[2018-01-12] MEDS: TAMSULOSIN HCL 0.4 MG CAP PO SCH (08:21)
--- NOTE | 2018-01-12 15:09 | HOSPPROG ---
Hospitalist Progress Note Assessment/Plan: 82 yo M with hx of CAD, a fib on chronic AC presenting with GI bleed and severe anemia # severe acute blood loss anemia: transfused 5 units in setting of GI bleed as next, 2/2 next, no evidence of ongoing bleeding however does remain quite anemic without any real increase in his h/h despite tx of 5 units. Will continue to trend h/h, will give one more unit as he remains symptomatic from his anemia # GI bleed: with source of bleeding found on egd and clipped, presumably gastric ulcer, continue PPI, as above # a fib, persistent: noted on ecg, rate controlled, holding pradaxa given acute bleed, will resume metoprolol at lower dose given continued mild hypotension # hypotension: 2/2 acute blood loss and now resolved, continue to hold bp meds # CAD: trop of 0, no chest pain, will get repeat trop given bleed, recent echo showing EF of 69%, no significant vhd # bph: continue finasteride # hypothyroid: continue lt4 # IP status, will transition to med surg floor. Care plan reviewed with Dr. Hauser and further hx obtained from patients family present at bedside Subjective: no significant overnight events, patient notes he is feeling better today but that when he gets up he is still quite dizzy and feels very weak Objective: Vital Signs Temp Pulse Resp BP Pulse Ox 36.3 C 91 14 128/59 H 94 01/12/18 08:00 01/12/18 10:00 01/12/18 10:00 01/12/18 10:00 01/12/18 10:00 Laboratory Results 01/12/18 10:55 01/11/18 05:43 01/11/18 01/12/18 01/13/18 05:59 05:59 05:59 Intake Total 6200 2250 Output Total 425 Balance 6200 1825 PT 21.8 SEC (12.0-15.0) H 01/10/18 09:35 INR 1.89 (0.83-1.16) H 01/10/18 09:35 Constitutional: no apparent distress, appears nourished Eyes: PERRL, pale conjunctiva Ears, Nose, Mouth, Throat: moist mucous membranes, hearing normal Cardiovascular: regular rate and rhythym, no murmur, rub, or gallop, No edema Respiratory: no respiratory distress, no rales or rhonchi, clear to auscultation Gastrointestinal: normoactive bowel sounds, soft, non-tender abdomen Skin: warm, No normal color Musculoskeletal: no muscle tenderness Neurologic: AAOx3 Psychiatric: interacting appropriately, not anxious, not encephalopathic ICD10 Worksheet Patient Problems: Problems Problem Status Onset GI bleed Acute Chest pain Acute
[2018-01-12] MEDS: ROSUVASTATIN CALCIUM 20 MG TAB PO SCH (21:09)
[2018-01-12] MEDS: METOPROLOL TARTRATE 25 MG TAB PO SCH (21:11)
--- NOTE | 2018-01-12 22:36 | SOAPPROG ---
SOOMER Progress Note Assessment/Plan: Assessment: Plan: 01/12/18 05:36 A/P 1. GI bleed- s/p EGD with clip/gold probe with cessation of bleeding site in gastric body. Getting transfusion but no significant rise in HCT. No clinical evidence of GI bleed (i.e. no BMs). Will monitor and consider CT scan to rule out retroperitoneal bleed etc if HCT doesnt rise? Avoid NSAIDS. Continue PPI Subjective: cc: Follow up GI bleed No complaints. Objective: Vital Signs Temp Pulse Resp BP Pulse Ox 36.5 C 82 20 109/56 L 97 01/12/18 19:56 01/12/18 21:11 01/12/18 19:56 01/12/18 21:11 01/12/18 19:56 Laboratory Results 01/12/18 17:00 01/11/18 05:43 01/11/18 01/12/18 01/13/18 05:59 05:59 05:59 Intake Total 6200 2250 2175 Output Total 425 Balance 6200 1825 2175 PT 21.8 SEC (12.0-15.0) H 01/10/18 09:35 INR 1.89 (0.83-1.16) H 01/10/18 09:35 Physical Exam - Physical Exam General Appearance: alert, no apparent distress EENT: scleral icterus (L), No scleral icterus (R) Respiratory: lungs clear, normal breath sounds Cardiac/Chest: regular rate, rhythm, No bradycardia, No tachycardia Abdomen: non-tender, soft, distended, No guarding, No rebound Neuro/Psych: normal mood/affect, oriented x 3, No abnormal city weighmaster II-XII ICD10 Worksheet Patient Problems: Problems Problem Status Onset GI bleed Acute Chest pain Acute
[2018-01-13] MEDS: PANTOPRAZOLE SODIUM 40 MG VIAL IVP SCH ×3 (02:07→17:58)
[2018-01-13] MEDS: LEVOTHYROXINE 75 MCG TAB PO SCH (06:14)
--- NOTE | 2018-01-13 09:02 | HOSPPROG ---
Hospitalist Progress Note Assessment/Plan: #Severe acute blood loss anemia -due to gastric ulcer (clipped, gold probe) s/p 6 units RBCs. H/H now stable today -No NSAIDs #Permanent atrial fibrillation: hold Pradaxa, reduce BB to 12.5mg BID with soft BP #BPH: hold Flomax with hypotension #CAD: no chest pain. Statin, BB #Diet: regular #Disp: monitor H/H tonight, if stable, can discharge tomorrow Subjective: no BM in 3 days Objective: Vital Signs Temp Pulse Resp BP Pulse Ox 36.8 C 69 16 110/56 L 92 01/13/18 05:02 01/13/18 05:02 01/13/18 05:02 01/13/18 05:02 01/13/18 05:02 Laboratory Results 01/13/18 05:10 01/11/18 05:43 01/12/18 01/13/18 01/14/18 05:59 05:59 05:59 Intake Total 2250 2475 Output Total 425 Balance 1825 2475 PT 21.8 SEC (12.0-15.0) H 01/10/18 09:35 INR 1.89 (0.83-1.16) H 01/10/18 09:35 - Time Spent With Patient Time Spent with Patient: greater than 35 minutes Time Spent with Patient: Greater than 35 minutes spent on this patients care, greater than 50% of time spent counseling, educating, and coordinating care regarding the above mentioned plan. - Physical Exam Constitutional: no apparent distress Eyes: PERRL Ears, Nose, Mouth, Throat: moist mucous membranes Cardiovascular: irregularly irregular Respiratory: no respiratory distress Gastrointestinal: normoactive bowel sounds, No no palpable masses, No tenderness Genitourinary: no bladder fullness Skin: warm Musculoskeletal: full muscle strength Neurologic: AAOx3, CN II-XII Intact Psychiatric: interacting appropriately ICD10 Worksheet Patient Problems: Problems Problem Status Onset GI bleed Acute Chest pain Acute
[2018-01-13] MEDS: MULTIVITAMINS 1 EACH TAB PO SCH ×2 (09:11→20:37)
[2018-01-13] MEDS: POTASSIUM CL 10 MEQ TAB PO SCH (09:12)
[2018-01-13] MEDS: FINASTERIDE 5 MG TAB PO SCH (09:12)
[2018-01-13] MEDS: METOPROLOL TARTRATE 25 MG TAB PO SCH ×3 (09:16→20:38)
[2018-01-13] MEDS: TAMSULOSIN HCL 0.4 MG CAP PO SCH (10:10)
[2018-01-13] MEDS: ROSUVASTATIN CALCIUM 20 MG TAB PO SCH (20:38)
[2018-01-13] MEDS: PANTOPRAZOLE SODIUM 40 MG TAB PO SCH (20:38)
--- NOTE | 2018-01-13 21:44 | SOAPPROG ---
ANDREE Progress Note Assessment/Plan: Assessment: Plan: 01/12/18 05:36 A/P 1. GI bleed- s/p EGD with clip/gold probe with cessation of bleeding site in gastric body. Getting transfusion but no significant rise in HCT. No clinical evidence of GI bleed (i.e. no BMs). Will monitor and consider CT scan to rule out retroperitoneal bleed etc if HCT doesnt rise? Avoid NSAIDS. Continue PPI 01/13/18 11:41 A/P 1. GI bleed- s/p EGD with oozing site in posterior wall of stomach. S/p clip/ gold probe with cessation of bleeding. NO signs of active GI bleed. Hemoglobin increasing. Ok to advance diet. DC home tomorrow if no signs of GI bleeding. Dr. Lopez is taking over the service this weekend. Please call him if needed. GI will sign off. Thank you for the consultation! Subjective: cc:Follow up GI bleed No complaints. No recent BM Objective: Vital Signs Temp Pulse Resp BP Pulse Ox 36.4 C 80 18 119/87 H 95 01/13/18 19:32 01/13/18 19:32 01/13/18 19:32 01/13/18 19:32 01/13/18 19:32 Laboratory Results 01/13/18 16:25 01/11/18 05:43 01/12/18 01/13/18 01/14/18 05:59 05:59 05:59 Intake Total 2250 2475 450 Output Total 425 Balance 1825 2475 450 PT 21.8 SEC (12.0-15.0) H 01/10/18 09:35 INR 1.89 (0.83-1.16) H 01/10/18 09:35 Physical Exam - Physical Exam General Appearance: alert, no apparent distress Respiratory: lungs clear, normal breath sounds, wheezing, No rales, No rhonchi Cardiac/Chest: regular rate, rhythm Abdomen: normal bowel sounds, non-tender, soft, No guarding, No rebound, No ascites Skin: normal color, warm/dry Neuro/Psych: alert, normal mood/affect, oriented x 3 ICD10 Worksheet Patient Problems: Problems Problem Status Onset Chest pain Acute GI bleed Acute
[2018-01-14] MEDS: LEVOTHYROXINE 75 MCG TAB PO SCH (05:48)
[2018-01-14 07:58] VITALS: BP 142/78
[2018-01-14] MEDS ORDERED: DOCUSATE SODIUM 100 MG CAP PO SCH (09:00)
[2018-01-14] MEDS: PANTOPRAZOLE SODIUM 40 MG TAB PO SCH (10:21)
[2018-01-14] MEDS: FINASTERIDE 5 MG TAB PO SCH (10:21)
[2018-01-14] MEDS: TAMSULOSIN HCL 0.4 MG CAP PO SCH (10:22)
[2018-01-14] MEDS: METOPROLOL TARTRATE 25 MG TAB PO SCH (10:23)
[2018-01-14] MEDS: MULTIVITAMINS 1 EACH TAB PO SCH (10:23)
[2018-01-14] MEDS: POTASSIUM CL 10 MEQ TAB PO SCH (10:24)
--- NOTE | 2018-01-14 11:47 | GDS ---
[f rep st] DISCHARGE SUMMARY DISCHARGE DIAGNOSES: 1. Acute blood loss anemia. 2. Gastrointestinal bleed with oozing of the posterior wall of the body of the stomach, status post clipping and Gold Probe. 3. Permanent atrial fibrillation, on anticoagulation. 4. Coronary artery disease. 5. Chronic obstructive pulmonary disease. 6. Hypertension. 7. Hypotension. 8. Hyperlipidemia. 9. Hypothyroidism. 10. Benign prostatic hypertrophy. HISTORY OF PRESENT ILLNESS: An 82-year-old male with past medical history of coronary disease, atrial fibrillation, on chronic Pradaxa, presenting with several days of lightheadedness, dizziness and melena. He had several episodes of vomiting with dark red emesis. He thought initially his stools were black because he had been taking iron. He became so weak that he fell and was confused. HOSPITAL COURSE: 1. Acute blood loss anemia: EGD showed oozing at the posterior wall of the stomach. This was clipped and cauterized with Gold Probe. Required significant amount of blood at 6 units. H/H are 9.8/ 29 at discharge. Advised to hold his anticoagulation and aspirin until Tuesday, with a repeat CBC. 2. Hypotension: was multifactorial with decreased p.o. and blood loss. 3. Hypertension. resume home medications. 4. Benign prostatic hyperplasia, on finasteride and Flomax. 5. Coronary artery disease. Resume aspirin on Tuesday. Continue beta gala and statin. 6. Hypothyroidism, Synthroid. DISPOSITION: Patient is stable for discharge home. NEW MEDICATIONS: Protonix 40 mg b.i.d. FOLLOWUP: 1. Primary care physician on Tuesday for repeat CBC. 2. Dr. O[place]iedo, his actuarial consultant. PHYSICAL EXAMINATION: VITAL SIGNS: Today, temperature 36.4 blood pressure 142/ 78, heart rate in the 60s to 90s, respirations 16, 92% on room air. GENERAL: He is well appearing, sitting in bed, no acute distress. HEENT: PERRLA. Moist mucous membranes. CV: Irregularly irregular. LUNGS: Clear. ABDOMEN: Soft, nontender. Positive bowel sounds. : No [place]. MUSCULOSKELETAL: 5/5 upper and lower extremity strength. NEURO: 2 through 12 intact. PSYCH: Alert and oriented x3. Time spent on discharge: Greater 30 minutes coordinating discharge and followup and counseling patient on new medications. /[id number]/MODL MTDD
--- NOTE | 2018-01-14 12:14 | ASMTCMCOM ---
CM Note CM Note Notes: Spoke w/pt, anticipate he will dc with support of his . No needs identified, CM available for any changes. DC Plan: Independent Date Signed: 01/14/2018 12:14 PM Electronically Signed By:Nyasia Arana RN
--- NOTE | 2018-01-14 12:15 | ASMTLACE ---
FABIÁNE Length of stay for Answers: 3 days current admission Acuity / Level of Answers: Yes Care: Did the patient have an inpatient admission? Comorbidities - select Answers: Congestive heart failure all that apply Coronary Artery Disease # of Emergency department Answers: 1-2 visits in the last 6 months Score: 11 Date Signed: 01/14/2018 12:14 PM Electronically Signed By:Nyasia Arana RN
== END 2018-01-14 12:13 | disposition home or self-care (01) | DRG 378 ==
LOC: F2N 13:03 → F3E 01-13 12:57
PROVIDERS: ADMIT Internal Medicine; ATTEND Internal Medicine
DX: K25.4 Chronic or unspecified gastric ulcer with hemorrhage (principal); D62 Acute posthemorrhagic anemia; I95.9 Hypotension, unspecified; I48.2 Chronic atrial fibrillation; I25.10 Atherosclerotic heart disease of native coronary artery without angina pectoris; E03.9 Hypothyroidism, unspecified; N40.0 Benign prostatic hyperplasia without lower urinary tract symptoms; J44.9 Chronic obstructive pulmonary disease, unspecified; I11.0 Hypertensive heart disease with heart failure; I50.9 Heart failure, unspecified; E78.5 Hyperlipidemia, unspecified; Z95.5 Presence of coronary angioplasty implant and graft; Z79.01 Long term (current) use of anticoagulants; F17.210 Nicotine dependence, cigarettes, uncomplicated
CPT/HCPCS: 84484-PO; 96374; J2405; J2704; P9016; P9021

== ENCOUNTER 2018-01-15 20:41 | Emergency (ER) | payer OTHER, MEDICARE ==
[2018-01-15 21:25] LABS: PLATELET COUNT 213 10^3/uL (150-400)
--- NOTE | 2018-01-15 21:30 | CPEKG ---
Heart Rate: 69 RR Interval: 870 QRSD Interval: 84 QT Interval: 440 QTC Interval: 472 QRS [place]: -25 T Wave [place]: 18 EKG Severity - ABNORMAL ECG - EKG Impression: ATRIAL FIBRILLATION EKG Impression: PROBABLE INFERIOR INFARCT, AGE INDETERMINATE EKG Impression: PROBABLE ANTEROSEPTAL INFARCT, AGE INDETERM Electronically Signed By: Krystal Burch 15-Jan-2018 23:04:35
[2018-01-15 21:36] LABS: INR 1.18 (0.83-1.16); PROTIME(PATIENT) 15.2 SEC (12.0-15.0)
--- NOTE | 2018-01-15 21:48 | EDPHY ---
H & P Stated Complaint: RED BLOOD IN STOOL/"LOW BP"/DIZZINESS/D/C YEST INPATIENT Time Seen by Provider: 01/15/18 21:15 HPI/ROS: CHIEF COMPLAINT: Dizziness, bloody stool HISTORY OF PRESENT ILLNESS: 82-year-old male with a history of atrial fibrillation and recent upper GI hemorrhage presents with dizziness and bloody stool. He was admitted on 01/10/2018 for GI bleed. Hematocrit was 19 and he was transfused 6 units packed red blood cells. Endoscopy revealed losing blood from a stomach ulceration. The area was clipped and cauterized. He was discharged home yesterday feeling well. This afternoon after getting up from a nap, he had onset of dizziness while climbing a flight of stairs. He felt like he might faint. Since then, every time he stands up, he is dizzy and needs to hold onto objects to keep himself upright. Took stool softener today, b/c of no BM in 5 days. Stool was black, pt thinks this is because of iron supplementation REVIEW OF SYSTEMS: complete 10 point ROS negative except at noted in the HPI - Personal History Current Tetanus Diphtheria and Acellular Pertussis (TDAP): Yes Tetanus Vaccine Date: 2002 - Medical/Surgical History Hx Asthma: No Hx Chronic Respiratory Disease: No Hx Diabetes: No Hx Cardiac Disease: Yes Hx Renal Disease: No Hx Cirrhosis: No Hx Alcoholism: No Hx HIV/AIDS: No Hx Splenectomy or Spleen Trauma: No Other PMH: AFib, Stents x 5, pericarditis, mi, bph, hyperlipidemia, hypertension , hypothyroid, CHF, ANEMIA HX BLOOD [place] - Social History Smoking Status: Heavy smoker - Physical Exam Exam: General Appearance: Alert, pleasant Eyes: Pupils equal and round, no conjunctival pallor or injection ENT, Mouth: Mucous membranes moist Neck: Normal inspection Respiratory: Lungs are clear to auscultation Cardiovascular: Regular rate and rhythm Gastrointestinal: Abdomen is soft and nontender Rectal: Black stool Neurological: A&O, nonfocal, normal gait Skin: Warm and dry Extremities: Nontender, no pedal edema Psychiatric: Mood and affect normal Constitutional: Initial Vital Signs Temperature (C) 36.4 C 01/15/18 20:50 Heart Rate 80 01/15/18 20:50 Respiratory Rate 16 01/15/18 20:50 Blood Pressure 114/53 L 01/15/18 20:50 O2 Sat (%) 97 01/15/18 20:50 O2 Delivery Mode Room Air Allergies/Adverse Reactions: clopidogrel bisulfate [From Plavix] Allergy (Severe, Verified 01/15/18 20:49) MUSCLE WEAKNESS atorvastatin [Atorvastatin] Allergy (Verified 01/15/18 20:49) MUSCLE PAIN Home Medications: Medication Instructions Recorded Dabigatran Etexilate Mesyl 150 mg PO BID 07/21/17 [Pradaxa 150 MG (*)] Finasteride [Proscar 5 MG (*)] 2.5 mg PO DAILY 07/21/17 Losartan Potassium [Cozaar 25 mg 12.5 mg PO HS 07/21/17 (*)] Tamsulosin HCl [Flomax 0.4 MG (*)] 0.8 mg PO DAILY 07/21/17 Aspirin [Aspirin 81mg (*)] 81 mg PO HS 01/04/18 Furosemide [Lasix 20 MG (*)] 20 mg PO DAILY #30 tab 01/04/18 Levothyroxine [Synthroid 75 mcg 75 mcg PO DAILY06 01/04/18 (*)] Metoprolol Succinate Xr [Toprol Xl 50 mg PO BID 01/04/18 50 mg (*)] Potassium Chloride 10 meq PO DAILY #30 tab.er.prt 01/04/18 Rosuvastatin Calcium [Crestor 20mg 10 mg PO HS 01/04/18 (*)] Herbals/Supplements -Info Only 1 ea PO DAILY 01/10/18 Multivitamins [Multivitamin (*)] 0.5 each PO BID 01/10/18 Docusate Sodium [Colace 100 MG (*)] 100 mg PO BID cap 01/14/18 Pantoprazole Sodium [Protonix 40mg 40 mg PO BID #60 tab 01/14/18 (*)] Medical Decision Making - Diagnostics EKG Interpretation: EKG interpreted by me reveals atrial fibrillation, ventricular rate 69, poor R- wave progression, inferior Q-waves. Interpretation abnormal EKG ED Course/Re-evaluation: This patient presents with orthostatic dizziness after recent GI bleed. Initial vital signs are normal. Stool positive for occult blood, as expected for first BM after recent upper GI bleed. Hematocrit is stable at 29. Orthostatics vital signs positive. IV NS 500ml given. Feels better, BP 113/84 , HR 80's. Declines admission, wants to go home, dizziness resolved. Ambulates with a steady gait. No evidence of acute hemorrhage. After further discussion with the pt, he has been limiting his oral intake and restarting diuretics since d/c home. He will increase his fluid intake to normal. Return with dizziness, any concerns. Differential Diagnosis: includes though not limited to recurrent GI bleed, severe anemia, ACS, CVA, TIA , electrolyte abn, ARF - Data Points Laboratory Results: Laboratory Results 01/15/18 21:14 01/15/18 21:14 Medications Given: Discontinued Medications Sodium Chloride (Ns) 500 mls @ 1,000 mls/hr IV EDNOW ONE PRN Reason: Protocol Stop: 01/15/18 22:47 Last Admin: 01/15/18 22:43 Dose: 500 mls Point of Care Test Results: Chemistry 01/15/18 22:40 POC Troponin I 0.00 ng/mL ng/mL (0.00-0.08) Departure - Departure Disposition: Home, Routine, Self-Care Clinical Impression: Dizziness Condition: Good Instructions: Dizziness (ED) Additional Instructions: Drink plenty of fluids. Return for recurrent dizziness or any concerns. Referrals: Vinny Barajas MD [Primary Care Provider] - 1 day without fail
[2018-01-15] MEDS ORDERED: NS 500 ML IV ONE (22:18)
[2018-01-15 23:20] VITALS: BP 112/54
== END 2018-01-15 23:32 | disposition home or self-care (01) ==
DX: R42 Dizziness and giddiness (principal); I11.0 Hypertensive heart disease with heart failure; I50.9 Heart failure, unspecified; F17.200 Nicotine dependence, unspecified, uncomplicated; E86.9 Volume depletion, unspecified; Z79.82 Long term (current) use of aspirin; Z95.5 Presence of coronary angioplasty implant and graft
CPT/HCPCS: 84484-PO

== ENCOUNTER → 2018-03-14 | Outpatient (CLI) | payer OTHER, MEDICARE | LOC: BMCIMAGING 07:50 | PROVIDERS: ATTEND Internal Medicine | DX: K76.9 Liver disease, unspecified (principal); K86.9 Disease of pancreas, unspecified; K80.10 Calculus of gallbladder with chronic cholecystitis without obstruction; I71.4 Abdominal aortic aneurysm, without rupture ==

== ENCOUNTER → 2018-03-15 | Outpatient (CLI) | payer OTHER, MEDICARE ==
[~2018-03-15] MED LIST: IOPAMIDOL (ISOVUE-300) 100 ML BTL ONE
== END ==
LOC: FIMAGING 12:27
PROVIDERS: ATTEND Internal Medicine
DX: C78.7 Secondary malignant neoplasm of liver and intrahepatic bile duct (principal); I71.4 Abdominal aortic aneurysm, without rupture; I25.10 Atherosclerotic heart disease of native coronary artery without angina pectoris; K80.10 Calculus of gallbladder with chronic cholecystitis without obstruction; I51.7 Cardiomegaly
CPT/HCPCS: 74177; Q9967